=== PATIENT | male | born 1935 | race Two or more races ===

== ENCOUNTER → 2016-09-20 | Outpatient (CLI) | payer MEDICARE, OTHER ==
[~2016-09-20] MED LIST: ATOR10TA PO; ESOM40CA39 PO; READI-CAT 2 (BARIUM SULF)(VANILLA SMOOTHIE) 450ML ONE; SIMV10TA73 PO; TAM04C PO; TRIA37.561 PO
== END | disposition home or self-care (01) ==
LOC: Rad HDHVI 10:18
PROVIDERS: ATTEND Internal Medicine Cardiovascular Disease
DX: K57.30 Diverticulosis of large intestine without perforation or abscess without bleeding (principal); I70.8 Atherosclerosis of other arteries; M47.897 Other spondylosis, lumbosacral region
CPT/HCPCS: 74176

== ENCOUNTER → 2016-11-08 | Outpatient (CLI) | payer MEDICARE, OTHER ==
[~2016-11-08] MED LIST changes: -READI-CAT 2 (BARIUM SULF)(VANILLA SMOOTHIE) 450ML ONE
== END | disposition home or self-care (01) ==
LOC: Rad HDHVI 10:10
PROVIDERS: ATTEND Internal Medicine Cardiovascular Disease
DX: I70.0 Atherosclerosis of aorta (principal); M51.34 Other intervertebral disc degeneration, thoracic region
CPT/HCPCS: 71020

== ENCOUNTER 2016-11-13 20:49 | Inpatient (IN) | payer MEDICARE, OTHER, BC ==
[~2016-11-13] VITALS: Ht 182.9 cm; Wt 82.0 kg
[~2016-11-13 20:49] MED LIST changes: -ASPI81CH59 PO; -BIMA0.01 OP; -FURO40TA PO; -POTA10SO11 PO; -PREG50CA PO
[2016-11-13 21:28] LABS: Basophils # (auto) 0.1 uL; Basophils % (auto) 0.5 % (0.0-2.0); Eosinophils # (auto) 0.4 uL; Eosinophils % (auto) 3.1 % (0.0-7.0); Hematocrit 41.1 % (41.0-53.0); Hemoglobin 13.7 g/dL (13.5-17.5); Mean Corpuscular Hgb Conc. 33.3 g/dL (32.0-36.0); Mean Corpuscular Volume 93.1 fL (80.0-100.0); Mean Platelet Volume 7.4 fL (7.4-10.4); Monocytes # (auto) 1.1 uL; Monocytes % (auto) 9.5 % (0.0-12.0); Neutrophils % (auto) 77.9 % (37.0-80.0); Platelet Count (auto) 371 10^3/uL (140-450); Red Cell Distribution Width 14.1 % (11.6-16.0); White Blood Cell 11.6 10^3/uL (4.4-10.8)
[2016-11-13 21:56] LABS: Albumin 3.1 g/dL (3.4-5.0); Alkaline Phosphatase 101 U/L (45-117); Anion Gap 12 (5-15); Aspartate Aminotransferase 22 U/L (15-37); BUN/Creatinine Ratio 10.9; Bilirubin, Total 0.6 mg/dL (0.2-1.0); Blood Urea Nitrogen 15 mg/dL (7-18); Calcium 8.9 mg/dL (8.5-10.1); Carbon Dioxide 27 mmol/L (21-32); Chloride 101 mmol/L (98-107); GFR African American 64 mL/min; GFR Non-African American 53 mL/min; Glucose 102 mg/dL (74-106); Magnesium 2.3 mg/dL (1.6-2.6); Potassium 3.8 mmol/L (3.5-5.1); Sodium 140 mmol/L (136-145); Total Protein 7.6 g/dL (6.4-8.2)
[2016-11-13 22:20] LABS: INR 1.06 (0.9-1.15); Partial Thromboplastin Time 26.3 sec (22.64-33.71); Prothrombin Time 11.5 sec (9.37-12.3)
[2016-11-13] MEDS ORDERED: SODIUM CHLORIDE 0.9% 1,000 ML IVB ONE (22:53)
[2016-11-14] VITALS (8 sets, daily range): BP systolic 118–131; BP diastolic 59–72
[2016-11-14] MEDS ORDERED: MORPHINE SULF INJ 2 MG/ML SYRINGE 1ML IV PRN
[2016-11-14] MEDS ORDERED: NITROGLYCERIN 0.4 MG SL TAB SL PRN
[2016-11-14] MEDS ORDERED: PREG50CA PO (00:18)
[2016-11-14] MEDS ORDERED: FURO40TA PO (00:18)
[2016-11-14] MEDS ORDERED: BIMA0.01 OP (00:18)
[2016-11-14] MEDS ORDERED: POTA10SO11 PO (00:18)
[2016-11-14] MEDS ORDERED: ASPI81CH59 PO (00:18)
[2016-11-14] MEDS: SODIUM CHLORIDE 0.9% 1,000 ML IV SCH ×2 (00:20→13:25)
[2016-11-14] MEDS ORDERED: ENOXAPARIN SOD 60 MG/0.6 ML SYRINGE SC SCH (01:00)
[2016-11-14] MEDS: ENOXAPARIN SOD 80 MG/0.8ML SYRINGE SC SCH (13:23)
[2016-11-15] MEDS: ENOXAPARIN SOD 80 MG/0.8ML SYRINGE SC SCH ×2 (01:30→13:21)
[2016-11-15] MEDS: SODIUM CHLORIDE 0.9% 1,000 ML IV SCH ×2 (02:40→16:00)
[2016-11-15 05:11] VITALS: BP 122/72
[2016-11-15 09:00] VITALS: BP 130/72
[2016-11-15 13:00] VITALS: BP 145/84
[2016-11-15 16:33] VITALS: BP 143/81
[2016-11-15] MEDS ORDERED: HYDROcodone-ACET 5/325MG TAB PO ONE (18:00)
[2016-11-15 18:34] VITALS: BP 143/81
[2016-11-15 22:00] VITALS: BP 142/79
[2016-11-16] VITALS (7 sets, daily range): BP systolic 134–150; BP diastolic 81–88
[2016-11-16] MEDS: ENOXAPARIN SOD 80 MG/0.8ML SYRINGE SC SCH ×2 (00:42→12:31)
[2016-11-16] MEDS: SODIUM CHLORIDE 0.9% 1,000 ML IV SCH ×2 (07:40→22:00)
[2016-11-16] MEDS ORDERED: IOHEXOL 300 MG/ML 100ML BOTTLE IJ ONE (09:50)
[2016-11-16] MEDS ORDERED: LEVOFLOXACIN 500MG 100 ML IV ONE (12:30)
[2016-11-16] MEDS ORDERED: LORATADINE 10 MG TAB PO ONE (12:30)
[2016-11-16] MEDS: FLUTICASONE PROP NASAL SPR 0.05 % (50MCG) 16GM EACHNOSTRI SCH (22:01)
[2016-11-16] MEDS: HYDROcodone-ACET 10/325MG TAB PO PRN (22:01)
[2016-11-17] VITALS (7 sets, daily range): BP systolic 131–146; BP diastolic 76–88
[2016-11-17] MEDS: ENOXAPARIN SOD 80 MG/0.8ML SYRINGE SC SCH ×2 (01:14→13:05)
[2016-11-17] MEDS: SODIUM CHLORIDE 0.9% 1,000 ML IV SCH ×2 (08:00→21:20)
[2016-11-17] MEDS ORDERED: MAGNESIUM CITRATE SOLUTION 300 ML BTL PO ONE (09:30)
[2016-11-17] MEDS: LORATADINE 10 MG TAB PO SCH (10:12)
[2016-11-17] MEDS: FLUTICASONE PROP NASAL SPR 0.05 % (50MCG) 16GM EACHNOSTRI SCH ×2 (10:12→22:08)
[2016-11-17] MEDS: LEVOFLOXACIN 500MG 100 ML IV SCH (10:12)
[2016-11-17] MEDS: HYDROcodone-ACET 10/325MG TAB PO PRN (22:08)
[2016-11-18] MEDS: ENOXAPARIN SOD 80 MG/0.8ML SYRINGE SC SCH ×2 (00:49→16:50)
[2016-11-18 05:07] VITALS: BP 146/76
[2016-11-18 08:00] VITALS: BP 110/70
[2016-11-18 08:48] VITALS: BP 110/70
[2016-11-18] MEDS: SODIUM CHLORIDE 0.9% 1,000 ML IV SCH (10:40)
[2016-11-18] MEDS: FLUTICASONE PROP NASAL SPR 0.05 % (50MCG) 16GM EACHNOSTRI SCH ×2 (11:12→22:30)
[2016-11-18] MEDS: LEVOFLOXACIN 500MG 100 ML IV SCH (11:12)
[2016-11-18] MEDS: LORATADINE 10 MG TAB PO SCH (11:13)
[2016-11-18 16:48] VITALS: BP 136/76
[2016-11-18] MEDS ORDERED: MAGNESIUM CITRATE SOLUTION 300 ML BTL PO ONE (20:00)
[2016-11-18 20:30] VITALS: BP 140/78
[2016-11-18 22:00] VITALS: BP 140/78
[2016-11-18] MEDS: HYDROcodone-ACET 10/325MG TAB PO PRN (22:30)
[2016-11-19] MEDS: ENOXAPARIN SOD 80 MG/0.8ML SYRINGE SC SCH ×2 (01:47→14:30)
[2016-11-19 05:00] VITALS: BP 127/69
[2016-11-19] MEDS: SODIUM CHLORIDE 0.9% 1,000 ML IV SCH ×2 (05:40→13:20)
[2016-11-19 08:00] VITALS: BP 104/69
[2016-11-19] MEDS: LORATADINE 10 MG TAB PO SCH (10:24)
[2016-11-19] MEDS: FLUTICASONE PROP NASAL SPR 0.05 % (50MCG) 16GM EACHNOSTRI SCH (10:24)
[2016-11-19] MEDS: LEVOFLOXACIN 500MG 100 ML IV SCH (10:24)
[2016-11-19 13:00] VITALS: BP 137/84
[2016-11-19] MEDS ORDERED: LEVO-28 PO ×2 (15:25)
[2016-11-19] MEDS ORDERED: GLUC-7 VI (16:43)
== END 2016-11-19 17:25 | disposition home or self-care (01) | DRG 315 ==
LOC: ER 20:53 → TELE-WESTW 20:54
PROVIDERS: ADMIT Internal Medicine Cardiovascular Disease; ATTEND Internal Medicine Cardiovascular Disease
DX: I95.9 Hypotension, unspecified (principal); E44.1 Mild protein-calorie malnutrition; E86.9 Volume depletion, unspecified; R00.1 Bradycardia, unspecified; K59.00 Constipation, unspecified; J32.9 Chronic sinusitis, unspecified
CPT/HCPCS: 36415; 70450; 70470; 71010; 73030; 80053; 82962; 83735; 84484; 85025; 85610; 85730; 93005; 94761; 96360; 96372; J1956

== ENCOUNTER → 2016-11-13 | Emergency (ER) | payer MEDICARE, OTHER ==
[~2016-11-13] MED LIST changes: +ASPI81CH59 PO; +BIMA0.01 OP; +FURO40TA PO; +POTA10SO11 PO; +PREG50CA PO
== END | disposition left against medical advice (07) ==
LOC: EDBD → ER 20:15

== ENCOUNTER → 2016-11-27 | Outpatient (CLI) | payer MEDICARE, OTHER, BC ==
[~2016-11-27] MED LIST changes: +ASPI81CH59 PO; -ATOR10TA PO; +BIMA0.01 OP; -ESOM40CA39 PO; +FURO40TA PO; +GLUC-7 VI; +LEVO-28 PO; +POTA10SO11 PO; +PREG50CA PO; -TRIA37.561 PO
[2016-11-27 14:15] LABS: Urine RBC None Seen /hpf (0 - 3)
[2016-11-27 16:29] LABS: Urine Bilirubin Negative (Negative); Urine Blood Negative /uL (Negative); Urine Color Yellow (Yellow); Urine Glucose Normal (Normal); Urine Ketone Negative (Negative); Urine Mucus FEW (None Seen); Urine Nitrite Negative (Negative); Urine Urobilinogen Normal (Negative); Urine pH 5.5 (5.0-8.0)
== END | disposition home or self-care (01) ==
LOC: LAB 11:08
PROVIDERS: ATTEND Internal Medicine Cardiovascular Disease
DX: N39.0 Urinary tract infection, site not specified (principal); R80.9 Proteinuria, unspecified
CPT/HCPCS: 81001; 84156

== ENCOUNTER → 2016-12-17 | Outpatient (CLI) | payer MEDICARE, OTHER, BC | END | disposition home or self-care (01) | LOC: Rad HDHVI 09:54 | PROVIDERS: ATTEND Internal Medicine Cardiovascular Disease | DX: R07.9 Chest pain, unspecified (principal); E11.40 Type 2 diabetes mellitus with diabetic neuropathy, unspecified | CPT/HCPCS: 93306 ==

== ENCOUNTER → 2017-01-03 | Outpatient (CLI) | payer MEDICARE, OTHER, BC ==
[~2017-01-03] VITALS: Ht 182.9 cm; Wt 81.6 kg
[~2017-01-03] MED LIST changes: +ADENOSINE 69 MG in GIVE UN-DILUTED 0 ML IV ONE; +ADENOSINE 90 MG/30 ML INJ IV ONE
== END | disposition home or self-care (01) ==
LOC: Rad HDHVI 09:51
PROVIDERS: ATTEND Internal Medicine Cardiovascular Disease
DX: I25.10 Atherosclerotic heart disease of native coronary artery without angina pectoris (principal); I10 Essential (primary) hypertension; E11.9 Type 2 diabetes mellitus without complications; R53.1 Weakness; E78.5 Hyperlipidemia, unspecified
CPT/HCPCS: 78452; 93005; 96374; 96375; A9500; J0153

== ENCOUNTER → 2017-03-04 | Outpatient (CLI) | payer MEDICARE, OTHER ==
[~2017-03-04] MED LIST changes: -ADENOSINE 69 MG in GIVE UN-DILUTED 0 ML IV ONE; -ADENOSINE 90 MG/30 ML INJ IV ONE
[2017-03-04 12:48] LABS: Basophils # (auto) 0 uL; Basophils % (auto) 0.3 % (0.0-2.0); CONDITION Y; Eosinophils # (auto) 0.1 uL; Eosinophils % (auto) 0.9 % (0.0-7.0); Hemoglobin 15.9 g/dL (13.5-17.5); Lymphocytes # (auto) 0.7 uL; Lymphocytes % (auto) 8.5 % (10.0-50.0); Mean Corpuscular Hemoglobin 30.1 pg (28.0-32.0); Mean Corpuscular Hgb Conc. 33.8 g/dL (32.0-36.0); Mean Corpuscular Volume 88.9 fL (80.0-100.0); Mean Platelet Volume 9.4 fL (7.4-10.4); Monocytes # (auto) 0.5 uL; Monocytes % (auto) 6.4 % (0.0-12.0); Neutrophils # (auto) 6.7 uL; Neutrophils % (auto) 83.9 % (37.0-80.0); Platelet Count (auto) 177 10^3/uL (140-450); Red Cell Distribution Width 14.8 % (11.6-16.0)
[2017-03-04 12:53] LABS: Urine Bilirubin Negative (Negative); Urine Blood Negative /uL (Negative); Urine Color Yellow (Yellow); Urine Glucose Normal (Normal); Urine Ketone TRACE (Negative); Urine Nitrite Negative (Negative); Urine pH 6.5 (5.0-8.0)
[2017-03-04 13:35] LABS: Potassium 4.2 mmol/L (3.5-5.1)
[2017-03-04 13:43] LABS: Albumin 3.3 g/dL (3.4-5.0); BUN/Creatinine Ratio 25.2; Calcium 8.9 mg/dL (8.5-10.1)
[2017-03-04 13:48] LABS: Bilirubin, Direct 0.2 mg/dL (0-0.2); Bilirubin, Total 0.9 mg/dL (0.2-1.0)
== END | disposition home or self-care (01) ==
LOC: LAB 10:38
PROVIDERS: ATTEND Internal Medicine Cardiovascular Disease
DX: I10 Essential (primary) hypertension (principal); D64.9 Anemia, unspecified; E78.00 Pure hypercholesterolemia, unspecified; E03.9 Hypothyroidism, unspecified; E55.9 Vitamin D deficiency, unspecified; R53.81 Other malaise; R97.20 Elevated prostate specific antigen [PSA]; K74.1 Hepatic sclerosis; E11.9 Type 2 diabetes mellitus without complications; N39.0 Urinary tract infection, site not specified
CPT/HCPCS: 36415; 80048; 80061; 80076; 81003; 82306; 83036; 84153; 84403; 84443; 85025

== ENCOUNTER → 2017-05-21 | Outpatient (CLI) | payer MEDICARE, OTHER ==
[~2017-05-21] MED LIST changes: +IOHEXOL 350 MG/ML 100ML IJ ONE
[2017-05-21 11:35] VITALS: BP 129/60
[2017-05-21 12:25] VITALS: BP 137/65
== END | disposition home or self-care (01) ==
LOC: Rad HDHVI 11:26
PROVIDERS: ATTEND Internal Medicine Cardiovascular Disease
DX: K57.30 Diverticulosis of large intestine without perforation or abscess without bleeding (principal); I70.0 Atherosclerosis of aorta; M47.896 Other spondylosis, lumbar region
CPT/HCPCS: 74178; 82565; 96374; Q9967; G0463

== ENCOUNTER → 2017-09-18 | Outpatient (CLI) | payer MEDICARE, OTHER ==
[~2017-09-18] MED LIST changes: +BIMA0.01 EACHEYE; +CLOT1CRE13 TOP; +DICL1GEL26 TD; -IOHEXOL 350 MG/ML 100ML IJ ONE; +LIDO5CRE14 EXT; +MELO1TAB56 PO; +POLYSOL5 EACHEYE; +TEST1.62 TD; +TIMO0.5S32 OP; +TRAM50TA2 PO
[2017-09-18 12:33] LABS: Basophils # (auto) 0.1 uL; Basophils % (auto) 1.1 % (0.0-2.0); Eosinophils # (auto) 0.5 uL; Hematocrit 46.4 % (41.0-53.0); Hemoglobin 15.4 g/dL (13.5-17.5); Lymphocytes # (auto) 0.7 uL; Lymphocytes % (auto) 11.8 % (10.0-50.0); Mean Corpuscular Hemoglobin 30.3 pg (28.0-32.0); Mean Corpuscular Hgb Conc. 33.3 g/dL (32.0-36.0); Mean Corpuscular Volume 91.1 fL (80.0-100.0); Monocytes # (auto) 0.5 uL; Monocytes % (auto) 8.5 % (0.0-12.0); Neutrophils # (auto) 4.5 uL; Neutrophils % (auto) 70.6 % (37.0-80.0); Nucleated Red Blood Cells % 0.3 %; Platelet Count (auto) 168 10^3/uL (140-450); Red Blood Cells 5.09 10^6/uL (4.5-5.90); Red Cell Distribution Width 14.2 % (11.8-14.3); White Blood Cell 6.3 10^3/uL (4.4-10.8)
[2017-09-18 12:45] LABS: Urine Blood TRACE /uL (Negative); Urine Specific Gravity 1.015 (1.001-1.035)
[2017-09-18 13:34] LABS: Albumin 3.2 g/dL (3.4-5.0); BUN/Creatinine Ratio 14.3; Bilirubin, Direct 0.2 mg/dL (0-0.2); Bilirubin, Total 0.6 mg/dL (0.2-1.0); Calcium 8.9 mg/dL (8.5-10.1); Potassium 4.1 mmol/L (3.5-5.1); Total Protein 7.4 g/dL (6.4-8.2)
[2017-09-18 19:46] LABS: Prostate Specific Antigen 0.9 ng/mL (0.0-4.0)
== END | disposition home or self-care (01) ==
LOC: LAB 08:29
PROVIDERS: ATTEND Internal Medicine Cardiovascular Disease
DX: E78.00 Pure hypercholesterolemia, unspecified (principal); D64.9 Anemia, unspecified; E11.9 Type 2 diabetes mellitus without complications; E03.9 Hypothyroidism, unspecified; E55.9 Vitamin D deficiency, unspecified; K74.1 Hepatic sclerosis; D51.9 Vitamin B12 deficiency anemia, unspecified; N39.0 Urinary tract infection, site not specified; R53.81 Other malaise; R97.20 Elevated prostate specific antigen [PSA]; I10 Essential (primary) hypertension
CPT/HCPCS: 36415; 80048; 80061; 80076; 81003; 82306; 82607; 83036; 84153; 84403; 84439; 84443; 85025

== ENCOUNTER → 2017-10-17 | Outpatient (CLI) | payer MEDICARE, OTHER ==
[2017-10-17 11:25] VITALS: BP 134/65
[2017-10-17 11:55] VITALS: BP 150/70
[2017-10-17 15:56] LABS: Basophils # (auto) 0.1 uL; Basophils % (auto) 0.8 % (0.0-2.0); Eosinophils # (auto) 0.7 uL; Eosinophils % (auto) 9.6 % (0.0-7.0); Hemoglobin 14.4 g/dL (13.5-17.5); Lymphocytes # (auto) 0.8 uL; Lymphocytes % (auto) 10.7 % (10.0-50.0); Mean Corpuscular Hemoglobin 31.6 pg (28.0-32.0); Mean Corpuscular Hgb Conc. 34.3 g/dL (32.0-36.0); Mean Corpuscular Volume 92.1 fL (80.0-100.0); Monocytes # (auto) 0.6 uL; Monocytes % (auto) 7.8 % (0.0-12.0); Neutrophils # (auto) 5.5 uL; Neutrophils % (auto) 71.1 % (37.0-80.0); Nucleated Red Blood Cells % 0.1 %; Platelet Count (auto) 161 10^3/uL (140-450); Red Blood Cells 4.56 10^6/uL (4.5-5.90); Red Cell Distribution Width 14.8 % (11.8-14.3); White Blood Cell 7.7 10^3/uL (4.4-10.8)
[2017-10-17 16:04] LABS: BUN/Creatinine Ratio 16.7; Calcium 8.2 mg/dL (8.5-10.1)
[2017-10-17 16:23] LABS: INR 1.04 (0.9-1.15); Partial Thromboplastin Time 28.5 sec (22.64-33.71); Prothrombin Time 11.3 sec (9.37-12.3)
== END | disposition home or self-care (01) ==
LOC: CHF HDHVI 11:11
PROVIDERS: ATTEND Internal Medicine Cardiovascular Disease
DX: Z01.818 Encounter for other preprocedural examination (principal); E78.00 Pure hypercholesterolemia, unspecified; E55.9 Vitamin D deficiency, unspecified; I70.0 Atherosclerosis of aorta; D64.9 Anemia, unspecified; R79.1 Abnormal coagulation profile; I10 Essential (primary) hypertension
CPT/HCPCS: 36415; 71046; 80048; 85025; 85610; 85730; 93005; G0463

== ENCOUNTER → 2017-11-21 | Outpatient (CLI) | payer MEDICARE, OTHER ==
[~2017-11-21] MED LIST changes: -BIMA0.01 OP; -FURO40TA PO; -GLUC-7 VI; -LEVO-28 PO; -POTA10SO11 PO; -SIMV10TA73 PO
[2017-11-21 09:00] VITALS: BP 136/88
[2017-11-21 11:57] VITALS: BP 132/82
== END | disposition home or self-care (01) ==
LOC: Rad HDHVI 09:13
PROVIDERS: ATTEND Internal Medicine Cardiovascular Disease
DX: I70.0 Atherosclerosis of aorta (principal); I25.10 Atherosclerotic heart disease of native coronary artery without angina pectoris; E11.9 Type 2 diabetes mellitus without complications; I10 Essential (primary) hypertension; E78.00 Pure hypercholesterolemia, unspecified
CPT/HCPCS: 71046; 93005; G0463

== ENCOUNTER → 2018-05-25 | Outpatient (CLI) | payer MEDICARE, OTHER | END | disposition home or self-care (01) | LOC: LAB 09:53 | PROVIDERS: ATTEND Internal Medicine Cardiovascular Disease | DX: C61 Malignant neoplasm of prostate (principal); E11.9 Type 2 diabetes mellitus without complications | CPT/HCPCS: 36415; 83036; 84153 ==

== ENCOUNTER → 2018-06-23 | Outpatient (CLI) | payer MEDICARE, BC, OTHER ==
[2018-06-23 11:56] LABS: Urine Blood TRACE /uL (Negative); Urine Specific Gravity 1.015 (1.001-1.035)
[2018-06-23 12:04] LABS: Basophils # (auto) 0.1 uL; Basophils % (auto) 0.8 % (0.0-2.0); Eosinophils # (auto) 0.4 uL; Eosinophils % (auto) 5.8 % (0.0-7.0); Hematocrit 43.8 % (41.0-53.0); Hemoglobin 14.4 g/dL (13.5-17.5); Lymphocytes # (auto) 0.7 uL; Lymphocytes % (auto) 11.1 % (10.0-50.0); Mean Corpuscular Hemoglobin 30.4 pg (28.0-32.0); Mean Corpuscular Hgb Conc. 32.9 g/dL (32.0-36.0); Mean Corpuscular Volume 92.5 fL (80.0-100.0); Monocytes # (auto) 0.6 uL; Monocytes % (auto) 9.3 % (0.0-12.0); Neutrophils # (auto) 4.9 uL; Nucleated Red Blood Cells % 0.2 %; Platelet Count (auto) 176 10^3/uL (140-450); Red Blood Cells 4.74 10^6/uL (4.5-5.90); Red Cell Distribution Width 14.6 % (11.8-14.3); White Blood Cell 6.7 10^3/uL (4.4-10.8)
[2018-06-23 13:13] LABS: Albumin 3.2 g/dL (3.4-5.0); BUN/Creatinine Ratio 19.3; Bilirubin, Total 0.8 mg/dL (0.2-1.0); Calcium 8.5 mg/dL (8.5-10.1); Total Protein 7.2 g/dL (6.4-8.2)
[2018-06-23 13:34] LABS: Free T4 (Free Thyroxine) 0.93 ng/dL (0.89-1.76); Prostate Specific Antigen 0.56 ng/mL (0.0-4.0)
== END | disposition home or self-care (01) ==
LOC: LAB 09:19
PROVIDERS: ATTEND Internal Medicine Cardiovascular Disease
DX: E78.5 Hyperlipidemia, unspecified (principal); E11.9 Type 2 diabetes mellitus without complications; E03.9 Hypothyroidism, unspecified; E55.9 Vitamin D deficiency, unspecified; D51.9 Vitamin B12 deficiency anemia, unspecified; C61 Malignant neoplasm of prostate; D64.9 Anemia, unspecified; N39.0 Urinary tract infection, site not specified; I10 Essential (primary) hypertension
CPT/HCPCS: 36415; 80053; 80061; 81003; 82306; 82607; 83036; 84153; 84403; 84439; 84443; 85025

== ENCOUNTER → 2018-10-06 | Outpatient (CLI) | payer MEDICARE, BC, OTHER | END | disposition home or self-care (01) | LOC: Rad HDHVI 13:04 | PROVIDERS: ATTEND Internal Medicine Cardiovascular Disease | DX: I08.1 Rheumatic disorders of both mitral and tricuspid valves (principal); G45.9 Transient cerebral ischemic attack, unspecified; I48.0 Paroxysmal atrial fibrillation; I49.5 Sick sinus syndrome; R00.2 Palpitations | CPT/HCPCS: 93306 ==

== ENCOUNTER → 2018-10-27 | Outpatient (CLI) | payer MEDICARE, BC, OTHER ==
[~2018-10-27] MED LIST changes: +ADENOSINE 70 MG in GIVE UN-DILUTED 0 ML IV ONE; +ADENOSINE 90 MG/30 ML INJ IV ONE
== END | disposition home or self-care (01) ==
LOC: Rad HDHVI 13:17
PROVIDERS: ATTEND Internal Medicine Cardiovascular Disease
DX: Z01.810 Encounter for preprocedural cardiovascular examination (principal); I49.5 Sick sinus syndrome; G45.9 Transient cerebral ischemic attack, unspecified; I48.0 Paroxysmal atrial fibrillation; E11.9 Type 2 diabetes mellitus without complications
CPT/HCPCS: 78452; 93005; 96374; 96375; A9500; J0153

== ENCOUNTER → 2019-04-09 | Outpatient (CLI) | payer MEDICARE, BC, OTHER ==
[~2019-04-09] MED LIST changes: -ADENOSINE 70 MG in GIVE UN-DILUTED 0 ML IV ONE; -ADENOSINE 90 MG/30 ML INJ IV ONE; +POLYSOL2 EACHEYE; -POLYSOL5 EACHEYE
[2019-04-09 12:09] LABS: Urine Blood TRACE /uL (Negative); Urine Specific Gravity 1.015 (1.001-1.035)
[2019-04-09 12:15] LABS: Basophils # (auto) 0.1 uL; Basophils % (auto) 0.9 % (0.0-2.0); Eosinophils # (auto) 0.6 uL; Eosinophils % (auto) 8.5 % (0.0-7.0); Hematocrit 44.7 % (41.0-53.0); Hemoglobin 15.3 g/dL (13.5-17.5); Lymphocytes # (auto) 0.7 uL; Lymphocytes % (auto) 10.5 % (10.0-50.0); Mean Corpuscular Hemoglobin 31.8 pg (28.0-32.0); Mean Corpuscular Hgb Conc. 34.2 g/dL (32.0-36.0); Mean Corpuscular Volume 93.1 fL (80.0-100.0); Monocytes # (auto) 0.6 uL; Monocytes % (auto) 7.8 % (0.0-12.0); Neutrophils # (auto) 5.1 uL; Neutrophils % (auto) 72.3 % (37.0-80.0); Nucleated Red Blood Cells % 0.2 %; Platelet Count (auto) 154 10^3/uL (140-450); Red Cell Distribution Width 14.6 % (11.8-14.3); White Blood Cell 7.1 10^3/uL (4.4-10.8)
[2019-04-09 12:28] LABS: Free T4 (Free Thyroxine) 0.94 ng/dL (0.89-1.76); Prostate Specific Antigen 0.56 ng/mL (0.0-4.0)
[2019-04-09 13:18] LABS: Albumin 3.4 g/dL (3.4-5.0)
[2019-04-09 13:24] LABS: BUN/Creatinine Ratio 16.1; Bilirubin, Total 1.1 mg/dL (0.2-1.0); Total Protein 7.5 g/dL (6.4-8.2)
== END | disposition home or self-care (01) ==
LOC: LAB 07:51
PROVIDERS: ATTEND Internal Medicine Cardiovascular Disease
DX: E03.9 Hypothyroidism, unspecified (principal); K90.9 Intestinal malabsorption, unspecified; C61 Malignant neoplasm of prostate; E29.1 Testicular hypofunction; N39.0 Urinary tract infection, site not specified; D51.9 Vitamin B12 deficiency anemia, unspecified; E11.9 Type 2 diabetes mellitus without complications; Z79.899 Other long term (current) drug therapy
CPT/HCPCS: 36415; 80053; 80061; 81003; 82306; 82607; 83036; 84153; 84403; 84439; 84443; 85025

== ENCOUNTER → 2019-05-11 | Outpatient (CLI) | payer MEDICARE, BC, OTHER | END | disposition home or self-care (01) | LOC: Rad HDHVI 08:23 | PROVIDERS: ATTEND Internal Medicine Cardiovascular Disease | DX: M19.072 Primary osteoarthritis, left ankle and foot (principal); M85.872 Other specified disorders of bone density and structure, left ankle and foot; M77.32 Calcaneal spur, left foot | CPT/HCPCS: 73630 ==

== ENCOUNTER → 2019-11-02 | Outpatient (CLI) | payer MEDICARE, OTHER ==
[~2019-11-02] VITALS: Ht 182.9 cm; Wt 83.5 kg
[~2019-11-02] MED LIST changes: +ADENOSINE 70 MG in GIVE UN-DILUTED 0 ML IV ONE; +ADENOSINE 90 MG/30 ML INJ IV ONE
[2019-11-02 15:47] LABS: Basophils # (auto) 0 10 ^3/uL (0-0.2); Basophils % (auto) 0.4 % (0.0-2.0); Eosinophils # (auto) 0.3 10 ^3/uL (0-0.8); Eosinophils % (auto) 4.6 % (0.0-7.0); Hematocrit 43.4 % (41.0-53.0); Hemoglobin 14.9 g/dL (13.5-17.5); Lymphocytes # (auto) 0.8 10 ^3/uL (0.4-5.4); Lymphocytes % (auto) 10.6 % (10.0-50.0); Mean Corpuscular Hemoglobin 31.8 pg (28.0-32.0); Mean Corpuscular Hgb Conc. 34.4 g/dL (32.0-36.0); Mean Corpuscular Volume 92.3 fL (80.0-100.0); Monocytes # (auto) 0.7 10 ^3/uL (0-1.3); Monocytes % (auto) 9.6 % (0.0-12.0); Neutrophils # (auto) 5.3 10 ^3/uL (1.6-8.6); Neutrophils % (auto) 74.8 % (37.0-80.0); Platelet Count (auto) 175 10^3/uL (140-450); Red Cell Distribution Width 13.9 % (11.8-14.3); White Blood Cell 7.1 10^3/uL (4.4-10.8)
[2019-11-02 15:57] LABS: Urine Blood Negative /uL (Negative); Urine Specific Gravity 1.015 (1.001-1.035)
[2019-11-02 15:59] LABS: Albumin 3.5 g/dL (3.4-5.0); BUN/Creatinine Ratio 17.3; Calcium 8.8 mg/dL (8.5-10.1); Potassium 4.6 mmol/L (3.5-5.1)
[2019-11-02 16:03] LABS: Bilirubin, Total 0.9 mg/dL (0.2-1.0); Total Protein 7.9 g/dL (6.4-8.2)
[2019-11-02 16:10] LABS: Free T4 (Free Thyroxine) 1.05 ng/dL (0.89-1.76)
== END | disposition home or self-care (01) ==
LOC: Rad HDHVI 12:48
PROVIDERS: ATTEND Internal Medicine Cardiovascular Disease
DX: Z00.00 Encounter for general adult medical examination without abnormal findings (principal); E03.9 Hypothyroidism, unspecified; K90.9 Intestinal malabsorption, unspecified; C61 Malignant neoplasm of prostate; E29.1 Testicular hypofunction; N39.0 Urinary tract infection, site not specified; D51.9 Vitamin B12 deficiency anemia, unspecified; Z79.899 Other long term (current) drug therapy
CPT/HCPCS: 36415; 78452; 80053; 80061; 81003; 82306; 82607; 83036; 84403; 84439; 84443; 85025; 93005; 96374; 96375; A9500; J0153

== ENCOUNTER → 2019-11-09 | Outpatient (CLI) | payer MEDICARE, OTHER ==
[~2019-11-09] MED LIST changes: -ADENOSINE 70 MG in GIVE UN-DILUTED 0 ML IV ONE; -ADENOSINE 90 MG/30 ML INJ IV ONE
== END | disposition home or self-care (01) ==
LOC: Rad HDHVI 12:49
PROVIDERS: ATTEND Internal Medicine Cardiovascular Disease
DX: I25.10 Atherosclerotic heart disease of native coronary artery without angina pectoris (principal); I11.0 Hypertensive heart disease with heart failure; I50.23 Acute on chronic systolic (congestive) heart failure
CPT/HCPCS: 93306

== ENCOUNTER → 2019-12-07 | Outpatient (CLI) | payer MEDICARE, OTHER ==
[~2019-12-07] MED LIST changes: +POM PO; +SIMV-8 PO
[2019-12-07 09:10] VITALS: BP 123/68
--- NOTE | 2019-12-07 09:10 | NUR ---
CHF PT ARRIVED TO THE CHF CLINIC FOR PRE OP EKG LABS AND CXR FOR LHC ON 12/09/19. A/OX4, AMBULATORY. VSS.
[2019-12-07 09:35] VITALS: BP 124/74
--- NOTE | 2019-12-07 09:35 | NUR ---
Pre-Op Discharge Summary: See e-MAR for any medications given for this visit. Pre-op orders received and carried out per MD of EKG, LABS and chest xrays. Patient given a copy of EKG with instructions to go to [facility] out patient for further follow up care. INSTRUCTIONS GIVEN TO PT TO HAVE CXR DONE AT HOSPITAL ALONG WITH COVID TESTING AND INTERVIEW. PT VERBALIZED UNDERSTANDING NOTE EKG DONE BY ANGI DELGADILLO
[2019-12-07 11:51] LABS: Basophils # (auto) 0.1 10 ^3/uL (0-0.2); Basophils % (auto) 0.8 % (0.0-2.0); Eosinophils # (auto) 0.8 10 ^3/uL (0-0.8); Eosinophils % (auto) 9.6 % (0.0-7.0); Hematocrit 43.6 % (41.0-53.0); Hemoglobin 14.7 g/dL (13.5-17.5); Lymphocytes # (auto) 0.8 10 ^3/uL (0.4-5.4); Lymphocytes % (auto) 10.1 % (10.0-50.0); Mean Corpuscular Hemoglobin 31.3 pg (28.0-32.0); Mean Corpuscular Hgb Conc. 33.6 g/dL (32.0-36.0); Mean Corpuscular Volume 93.2 fL (80.0-100.0); Monocytes # (auto) 0.6 10 ^3/uL (0-1.3); Monocytes % (auto) 8.1 % (0.0-12.0); Neutrophils # (auto) 5.6 10 ^3/uL (1.6-8.6); Neutrophils % (auto) 71.4 % (37.0-80.0); Platelet Count (auto) 179 10^3/uL (140-450); Red Blood Cells 4.67 10^6/uL (4.5-5.90); Red Cell Distribution Width 14.3 % (11.8-14.3); White Blood Cell 7.9 10^3/uL (4.4-10.8)
[2019-12-07 12:05] LABS: BUN/Creatinine Ratio 19.7; Calcium 8.7 mg/dL (8.5-10.1); Potassium 4.1 mmol/L (3.5-5.1)
[2019-12-07 12:06] LABS: INR 1.07 (0.9-1.15); Partial Thromboplastin Time 28.6 sec (23.64-32.05)
== END | disposition home or self-care (01) ==
LOC: Rad HDHVI 08:57
PROVIDERS: ATTEND Internal Medicine Cardiovascular Disease
DX: Z01.812 Encounter for preprocedural laboratory examination (principal); I50.9 Heart failure, unspecified; I25.10 Atherosclerotic heart disease of native coronary artery without angina pectoris; I49.5 Sick sinus syndrome; R94.39 Abnormal result of other cardiovascular function study
CPT/HCPCS: 36415; 80048; 82962; 85025; 85610; 85730; 93005; G0463

== ENCOUNTER 2019-12-09 09:30 | Day surgery (SDC) | payer MEDICARE, OTHER ==
[~2019-12-09] VITALS: Ht 182.9 cm; Wt 78.5 kg
[~2019-12-09 09:30] MED LIST changes: -TAM04C PO
[2019-12-09] MEDS ORDERED: IOHEXOL 350 MG/ML 100ML IJ ONE (11:28)
[2019-12-09] MEDS ORDERED: LIDOCAINE 2%HCL (LOCAL ANESTH.) INJ 20ML MDV ONE (11:28)
[2019-12-09] MEDS ORDERED: MIDAZOLAM HCL 1MG/1ML-2 ML VIAL ONE (11:36)
[2019-12-09] MEDS ORDERED: ANGIOMAX 250 MG VIAL IV ONE (11:36)
[2019-12-09] MEDS ORDERED: fentaNYL CITRATE 100 MCG/2 ML VL ONE (11:36)
[2019-12-09] MEDS ORDERED: SODIUM CHL 0.9% 0 ML ONE (11:37)
[2019-12-09] MEDS ORDERED: ACETAMINOPHEN 500 MG TAB PO PRN (12:30)
[2019-12-09] MEDS ORDERED: HYDROcodone-ACET 5/325MG TAB PO PRN (12:30)
[2019-12-09] MEDS ORDERED: ONDANSETRON HCL 4 MG/2 ML VIAL IV PRN (12:30)
== END 2019-12-09 15:01 | disposition home or self-care (01) ==
LOC: CATH 09:30
PROVIDERS: ATTEND Internal Medicine Cardiovascular Disease
DX: R94.39 Abnormal result of other cardiovascular function study (principal); I25.810 Atherosclerosis of coronary artery bypass graft(s) without angina pectoris; I10 Essential (primary) hypertension; E78.5 Hyperlipidemia, unspecified; J44.9 Chronic obstructive pulmonary disease, unspecified; Z88.0 Allergy status to penicillin; Z88.1 Allergy status to other antibiotic agents; Z98.890 Other specified postprocedural states; Z11.59 Encounter for screening for other viral diseases
CPT/HCPCS: 93458; C1760; C1894; J1644; J2250; J3010; J7030; Q9967; U0003; 99152

== ENCOUNTER → 2020-05-01 | Outpatient (CLI) | payer MEDICARE, OTHER ==
[~2020-05-01] VITALS: Ht 30.5 cm; Wt 0.5 kg
[~2020-05-01] MED LIST changes: +AZITHROMYCIN 500MG/ 250ML 250 ML IV ONE; +IOHEXOL 350 MG/ML 100ML IJ ONE; +methylPREDNISolone SOD SUCC 40 MG/ML VL IV ONE; +methylPREDNISolone SOD SUCC 40 MG/ML VL ONE
[2020-05-01 10:40] VITALS: BP 138/68
[2020-05-01 11:50] LABS: Basophils # (auto) 0 10 ^3/uL (0-0.2); Basophils % (auto) 0.4 % (0.0-2.0); Eosinophils # (auto) 0.3 10 ^3/uL (0-0.8); Eosinophils % (auto) 2.8 % (0.0-7.0); Hematocrit 42.4 % (41.0-53.0); Hemoglobin 13.9 g/dL (13.5-17.5); Lymphocytes # (auto) 0.4 10 ^3/uL (0.4-5.4); Lymphocytes % (auto) 3.9 % (10.0-50.0); Mean Corpuscular Hemoglobin 29.5 pg (28.0-32.0); Mean Corpuscular Hgb Conc. 32.8 g/dL (32.0-36.0); Mean Corpuscular Volume 89.9 fL (80.0-100.0); Monocytes # (auto) 0.7 10 ^3/uL (0-1.3); Neutrophils # (auto) 9.8 10 ^3/uL (1.6-8.6); Neutrophils % (auto) 86.9 % (37.0-80.0); Platelet Count (auto) 301 10^3/uL (140-450); Red Blood Cells 4.71 10^6/uL (4.5-5.90); Red Cell Distribution Width 14.6 % (11.8-14.3); White Blood Cell 11.2 10^3/uL (4.4-10.8)
[2020-05-01 12:00] LABS: BUN/Creatinine Ratio 20.2; Magnesium 2.2 mg/dL (1.6-2.6); Potassium 3.4 mmol/L (3.5-5.1)
[2020-05-01 13:38] VITALS: BP 138/63
== END | disposition home or self-care (01) ==
LOC: CHF HDHVI 10:38
PROVIDERS: ATTEND Internal Medicine Cardiovascular Disease
DX: J06.9 Acute upper respiratory infection, unspecified (principal); D64.9 Anemia, unspecified; I11.0 Hypertensive heart disease with heart failure; I50.23 Acute on chronic systolic (congestive) heart failure; R05 Cough
CPT/HCPCS: 36415; 71260; 80048; 83735; 83880; 85025; 96365; 96366; 96375; G0463; J0456; J2920; Q9967

== ENCOUNTER → 2020-05-12 | Outpatient (CLI) | payer MEDICARE, OTHER ==
[~2020-05-12] VITALS: Ht 30.5 cm; Wt 63.0 kg
[~2020-05-12] MED LIST changes: -AZITHROMYCIN 500MG/ 250ML 250 ML IV ONE; +CHOL500021 OR; +DORZ2SOL18 EACHEYE; +FINA5TAB4 PO; +LATA0.0020 EACHEYE; +PSYL28PO3; +SODIUM CHLORIDE 0.9% 500 ML IV ONE; -methylPREDNISolone SOD SUCC 40 MG/ML VL IV ONE; -methylPREDNISolone SOD SUCC 40 MG/ML VL ONE
[2020-05-12 09:53] VITALS: BP 104/55
--- NOTE | 2020-05-12 09:53 | NUR ---
CLINIC PT ARRIVED TO THE CLINIC FROM BACK OFFICE ADD ON CT CHEST WITH IV CONTRAST, A/OX4, AMBULATORY, BREATHING IS EVEN AND UNLABORED. PT IS A DIABETIC.
--- NOTE | 2020-05-12 09:59 | NUR ---
IV insertion IV access obtained, via clean sterile technique by inserting 22 gauge catheter at LAC after 1 attempt(s). IV secured properly. No trauma to site. Patient tolerated procedure well. LABS DRAWN AND SENT STAT. NOTE INSERTED BY ZANDRA GUNTER
--- NOTE | 2020-05-12 10:50 | NUR ---
CRAET RESULTS 1.48, MD AWARE NEW ORDERS RECEIVED FOR IV HYDRATION POST CT WITH CONTRAST. SEE EMAR
[2020-05-12 11:20] VITALS: BP 128/66
--- NOTE | 2020-05-12 13:12 | NUR ---
IV removal IV DC'd with sterile technique, catheter fully intact. Pressure dressing applied to site. Patient tolerated procedure well. Discharged with aftercare instructions per MD. NOTE: REMOVED BY ZANDRA GUNTER
[2020-05-12 13:16] VITALS: BP 143/73
--- NOTE | 2020-05-12 13:16 | NUR ---
Discharge Instructions See e-MAR for any mediations given with this visit. Patient education given on disease process. Patient verbalized understanding. Previous labs reviewed. Patient discharged in stable condition with after care instructions and follow up appointment WITH MD SIMON ON FRIDAY. [place] [id number] ADMIN BY ZANDRA GUNTER
== END | disposition home or self-care (01) ==
LOC: Rad HDHVI 09:41
PROVIDERS: ATTEND Internal Medicine Cardiovascular Disease
DX: R91.8 Other nonspecific abnormal finding of lung field (principal); R94.4 Abnormal results of kidney function studies; I11.0 Hypertensive heart disease with heart failure; I50.22 Chronic systolic (congestive) heart failure; I25.10 Atherosclerotic heart disease of native coronary artery without angina pectoris; I42.8 Other cardiomyopathies; J44.9 Chronic obstructive pulmonary disease, unspecified
CPT/HCPCS: 36415; 71260; 82565; 96360; 96361; G0463; J7040; Q9967

== ENCOUNTER 2020-05-17 09:38 | Inpatient (IN) | payer MEDICARE, OTHER ==
[~2020-05-17] VITALS: Ht 182.9 cm; Wt 78.2 kg
[~2020-05-17 09:38] MED LIST changes: -CHOL500021 OR; -DORZ2SOL18 EACHEYE; -FINA5TAB4 PO; -IOHEXOL 350 MG/ML 100ML IJ ONE; -LATA0.0020 EACHEYE; -PSYL28PO3; -SODIUM CHLORIDE 0.9% 500 ML IV ONE
--- NOTE | 2020-05-17 11:52 | NUR ---
Direct Admit Note MARLYN ALEXANDRA JR admitted to Telemetry/MS unit as a direct admit per MD order. Patient oriented to JAIME GOODMAN primary RN, unit, room 289B and unit policies regarding patient care and visiting hours. Patient weighed by bed scale and encouraged to call if they need something. All questions and concerns addressed, patient verbalized understanding. MD notified of patients arrival and admit orders received.
[2020-05-17 12:00] VITALS: BP 114/62
[2020-05-17] MEDS ORDERED: traMADol HCL 50 MG TAB PO PRN (12:00)
[2020-05-17] MEDS ORDERED: PREGABALIN 25 MG CAP PO ONE (12:45)
[2020-05-17] MEDS ORDERED: DORZ2SOL18 EACHEYE (12:55)
[2020-05-17] MEDS ORDERED: FINA5TAB4 PO (12:55)
[2020-05-17] MEDS ORDERED: PSYL28PO3 (12:55)
[2020-05-17] MEDS ORDERED: CHOL500021 OR (12:55)
[2020-05-17] MEDS ORDERED: LATA0.0020 EACHEYE (12:55)
[2020-05-17 13:13] LABS: Basophils # (auto) 0.1 10 ^3/uL (0-0.2); Basophils % (auto) 0.7 % (0.0-2.0); Eosinophils # (auto) 0.2 10 ^3/uL (0-0.8); Eosinophils % (auto) 1.5 % (0.0-7.0); Hematocrit 34.7 % (41.0-53.0); Hemoglobin 11.7 g/dL (13.5-17.5); Lymphocytes # (auto) 0.6 10 ^3/uL (0.4-5.4); Lymphocytes % (auto) 4.4 % (10.0-50.0); Mean Corpuscular Hemoglobin 30.3 pg (28.0-32.0); Mean Corpuscular Hgb Conc. 33.7 g/dL (32.0-36.0); Mean Corpuscular Volume 89.9 fL (80.0-100.0); Monocytes # (auto) 1.1 10 ^3/uL (0-1.3); Monocytes % (auto) 8.5 % (0.0-12.0); Neutrophils # (auto) 10.8 10 ^3/uL (1.6-8.6); Neutrophils % (auto) 84.9 % (37.0-80.0); Platelet Count (auto) 219 10^3/uL (140-450); Red Blood Cells 3.86 10^6/uL (4.5-5.90); Red Cell Distribution Width 15.5 % (11.8-14.3); White Blood Cell 12.7 10^3/uL (4.4-10.8)
[2020-05-17 13:23] LABS: Calcium 8.2 mg/dL (8.5-10.1); Potassium 3.9 mmol/L (3.5-5.1)
--- NOTE | 2020-05-17 13:35 | NUR ---
INFORMED ALFRED OF ELEVATED WBC New orders for rocephin qd and flagyl 500mg qid. Orders read back and verified.
[2020-05-17] MEDS ORDERED: metroNIDAZOLE 500MG/100ML 100 ML IV SCH (14:00)
[2020-05-17] MEDS ORDERED: cefTRIAXone 1GM/50ML D5W 50 ML IV SCH (14:00)
--- NOTE | 2020-05-17 14:06 | NUR ---
IV insertion IV access obtained, via clean sterile technique by inserting 20 gauge catheter at left forearm after 3 attempts. IV secured properly. No trauma to site. Patient tolerated well.
[2020-05-17] MEDS ORDERED: MEROPENEM 500MG IVPB 50 ML IV ONE (14:15)
--- NOTE | 2020-05-17 14:18 | NUR ---
MARQUEZ AT BEDSIDE Updated on the patient status, plan of care was discussed with the patient and he verbalized understanding. All questions answered. No new orders received.
[2020-05-17] MEDS: SODIUM CHLORIDE 0.9% 1,000 ML IV SCH (14:38)
[2020-05-17 16:42] VITALS: BP 140/72
[2020-05-17 22:00] VITALS: BP 128/66
[2020-05-17] MEDS: ARTIFICIAL TEARS 15ml EACHEYE SCH (22:00)
[2020-05-17] MEDS: MEROPENEM 1GM IVPB 100 ML IV SCH (22:42)
--- NOTE | 2020-05-17 23:41 | NUR ---
Respiratory note: AT BEDSIDE, SPUTUM SAMPLE CUP EMPTY. PT UNABLE TO PROVIDE SAMPLE AT THIS TIME. PT IS CURRENTLY SLEEPING. SPOKE TO RN, AWARE OF ORDER. WILL ENDORSE TO DAY SHIFT RT FOR SPUTUM SAMPLE .
[2020-05-18 05:00] VITALS: BP 130/64
[2020-05-18] MEDS: MEROPENEM 1GM IVPB 100 ML IV SCH ×3 (05:12→21:42)
--- NOTE | 2020-05-18 06:50 | NUR ---
SPUTUM CULTURE COLLECTED AND SENT TO LAB.
--- NOTE | 2020-05-18 07:20 | NUR ---
End of Shift Note Endorsed care to dayshift RN. At this time patient has no s/s of distress or SOB.
[2020-05-18 08:00] VITALS: BP 126/84
[2020-05-18 08:45] LABS: Basophils # (auto) 0.1 10 ^3/uL (0-0.2); Basophils % (auto) 0.6 % (0.0-2.0); Eosinophils # (auto) 0.4 10 ^3/uL (0-0.8); Eosinophils % (auto) 3.1 % (0.0-7.0); Hematocrit 31.6 % (41.0-53.0); Hemoglobin 10.4 g/dL (13.5-17.5); Lymphocytes # (auto) 0.7 10 ^3/uL (0.4-5.4); Lymphocytes % (auto) 6.2 % (10.0-50.0); Mean Corpuscular Hemoglobin 29.9 pg (28.0-32.0); Mean Corpuscular Hgb Conc. 33.1 g/dL (32.0-36.0); Mean Corpuscular Volume 90.4 fL (80.0-100.0); Monocytes % (auto) 8.6 % (0.0-12.0); Neutrophils # (auto) 9.2 10 ^3/uL (1.6-8.6); Neutrophils % (auto) 81.5 % (37.0-80.0); Platelet Count (auto) 191 10^3/uL (140-450); Red Cell Distribution Width 15.9 % (11.8-14.3); White Blood Cell 11.2 10^3/uL (4.4-10.8)
[2020-05-18 08:59] LABS: INR 1.16 (0.9-1.15)
[2020-05-18 09:00] VITALS: BP 126/84
[2020-05-18 09:04] LABS: Albumin 1.8 g/dL (3.4-5.0); Potassium 3.8 mmol/L (3.5-5.1)
[2020-05-18 09:10] LABS: Bilirubin, Total 0.5 mg/dL (0.2-1.0); Total Protein 6.1 g/dL (6.4-8.2)
[2020-05-18] MEDS: ARTIFICIAL TEARS 15ml EACHEYE SCH ×2 (10:00→21:42)
[2020-05-18] MEDS: FINASTERIDE 5 MG TAB PO SCH (10:06)
[2020-05-18] MEDS: PREGABALIN 25 MG CAP PO SCH (10:06)
--- NOTE | 2020-05-18 12:18 | NUR ---
sputum done and sent to lab by neena
[2020-05-18 13:00] VITALS: BP 118/56
[2020-05-18 17:00] VITALS: BP 123/60
--- NOTE | 2020-05-18 19:10 | NUR ---
Opening Shift Note Assumed care of patient from day shift RN, patient awake and alert and oriented x4. No S/S of distress/SOB or pain. Instructed on POC and to call for assist PRN, safety measures in place call light with in reach, bed in lowest position side rails up x2 will continue to monitor for changes Q1hr and PRN.
[2020-05-18] MEDS: LACTULOSE 20Gm/30ML SOLN PO PRN (21:42)
[2020-05-18] MEDS: SODIUM CHLORIDE 0.9% 1,000 ML IV SCH (21:52)
[2020-05-18 22:00] VITALS: BP 120/72
[2020-05-19 05:00] VITALS: BP 124/71
[2020-05-19] MEDS: MEROPENEM 1GM IVPB 100 ML IV SCH ×3 (05:09→22:00)
[2020-05-19 08:29] VITALS: BP 118/71
[2020-05-19] MEDS: ARTIFICIAL TEARS 15ml EACHEYE SCH ×2 (10:00→22:00)
[2020-05-19] MEDS: FINASTERIDE 5 MG TAB PO SCH (10:12)
[2020-05-19] MEDS: PREGABALIN 25 MG CAP PO SCH (10:13)
--- NOTE | 2020-05-19 10:20 | NUR ---
MD AT BEDSIDE DR. ZAYAS WAS IN TO SEE PATIENT AND MD STATED THAT HE CAN BE DISCHARGE PER PULMO AND WILL SEE PATIENT IN 6 WEEKS FOR FOLLOW UP.
[2020-05-19 12:33] VITALS: BP 126/70
--- NOTE | 2020-05-19 16:29 | NUR ---
Nutrition Assessment Notes Please refer to link for full assessment notes. Est Energy needs: 5344-1366 kcals (20-23 kcal/kgBW) Est Protein needs: 78-86 gms/day (1.0-1.1 gm/kgBW) Will continue to monitor and reassess prn. Addendum: 05/19/20 at [address] Amended: Links added.
[2020-05-19 17:00] VITALS: BP 134/86
--- NOTE | 2020-05-19 19:35 | NUR ---
Opening Shift Note Assumed care of patient, awake and alert. No S/S of distress/SOB or pain. Bed is locked in lowest position with call light within reach. Instructed on POC and to call for assist PRN, will continue to monitor for changes Q1hr and PRN.
[2020-05-19 21:58] VITALS: BP 137/74
--- NOTE | 2020-05-19 22:15 | NUR ---
MEDICATION REFUSAL The patient refused the eye drops stating that "it does not work". Patient educated on the importance of medication compliance. Patient verbalized understanding but continues to refuse.
[2020-05-20] VITALS (7 sets, daily range): BP systolic 115–131; BP diastolic 51–72
[2020-05-20] MEDS: MEROPENEM 1GM IVPB 100 ML IV SCH ×3 (06:00→23:20)
[2020-05-20] MEDS: ARTIFICIAL TEARS 15ml EACHEYE SCH ×2 (10:00→22:00)
[2020-05-20] MEDS: FINASTERIDE 5 MG TAB PO SCH (10:27)
[2020-05-20] MEDS: PREGABALIN 25 MG CAP PO SCH (10:27)
[2020-05-20] MEDS: SODIUM CHLORIDE 0.9% 1,000 ML IV SCH ×2 (20:05)
[2020-05-21 05:00] VITALS: BP 126/72
[2020-05-21] MEDS: MEROPENEM 1GM IVPB 100 ML IV SCH ×3 (06:14→22:00)
--- NOTE | 2020-05-21 07:30 | NUR ---
Opening Shift Note Received report from supervisor harvesting RN. Assumed care of patient, awake and alert. No S/S of distress/SOB or pain. Instructed on POC and to calling for assistance PRN, will continue to monitor for changes Q1hr and PRN.
[2020-05-21 08:49] VITALS: BP 122/68
[2020-05-21] MEDS: PREGABALIN 25 MG CAP PO SCH (10:36)
[2020-05-21] MEDS: FINASTERIDE 5 MG TAB PO SCH (10:36)
[2020-05-21] MEDS: ARTIFICIAL TEARS 15ml EACHEYE SCH ×2 (10:37→22:00)
[2020-05-21] MEDS: LACTULOSE 20Gm/30ML SOLN PO PRN (10:37)
[2020-05-21 14:00] VITALS: BP 124/72
--- NOTE | 2020-05-21 16:00 | NUR ---
IV FLUIDS NEW BAG OF IV FLUIDS NOT NEEDED AT THIS TIME. PREVIOUS BAG STILL INFUSING.
[2020-05-21 17:29] VITALS: BP 130/82
--- NOTE | 2020-05-21 19:15 | NUR ---
CHANGE OF SHIFT REPORT GIVEN TO ACTUARIAL SCIENCE TEACHER RN. PT STABLE AT THIS TIME.
[2020-05-21] MEDS: SODIUM CHLORIDE 0.9% 1,000 ML IV SCH (19:20)
--- NOTE | 2020-05-21 19:30 | NUR ---
Opening Shift Note Assumed care of patient, awake and alert. No S/S of distress/SOB or pain. Instructed on POC and to call for assist PRN, will continue to monitor for changes Q1hr and PRN.
[2020-05-21 20:00] VITALS: BP 120/70
[2020-05-21 22:00] VITALS: BP 120/70
[2020-05-22 05:00] VITALS: BP_SYST 122; BP_SYST 125; BP_DIAS 65; BP_DIAS 74
[2020-05-22] MEDS: MEROPENEM 1GM IVPB 100 ML IV SCH (06:26)
--- NOTE | 2020-05-22 07:20 | NUR ---
Opening Shift Note Assumed care of patient, awake and alert. No S/S of distress/SOB or pain. Instructed on POC and to call for assist PRN. Bed locked in lowest position, side rails up x2, call light within reach. Will continue to monitor for changes Q1hr and PRN.
[2020-05-22 08:54] VITALS: BP 128/76
[2020-05-22] MEDS: FINASTERIDE 5 MG TAB PO SCH (09:42)
[2020-05-22] MEDS: PREGABALIN 25 MG CAP PO SCH (09:43)
[2020-05-22] MEDS: ARTIFICIAL TEARS 15ml EACHEYE SCH (09:46)
[2020-05-22] MEDS: SODIUM CHLORIDE 0.9% 1,000 ML IV SCH (12:00)
[2020-05-22 12:44] VITALS: BP 119/69
--- NOTE | 2020-05-22 14:30 | NUR ---
Assessment This is an 84-year-old male, who is alert and oriented. Patient cognitive abilities are intact. Patient stated that he can do all ADLs and ambulates independently. Patient stated that he is retired and lives alone. Patient stated that he receives social security for monthly income. Patient stated that he has a son Jae ([phone]). Patient stated that his son is his support system. Patient stated that he has an Advance Directive that is completed and on file at [facility]. Patient stated that he is not receptive to receive home health services for ADLs or Physical therapy purposes. Discharge planning: Patient will follow up with his PCP post discharge. Patient will resume previous home activities post discharge. Patient has no post discharge needs identified. Addendum: 05/22/20 at 1431 by ANAND ESCOTO Amended: Links added.
[2020-05-22 14:54] LABS: Basophils # (auto) 0.1 10 ^3/uL (0-0.2); Basophils % (auto) 0.8 % (0.0-2.0); Eosinophils # (auto) 0.4 10 ^3/uL (0-0.8); Eosinophils % (auto) 6.3 % (0.0-7.0); Hematocrit 34.3 % (41.0-53.0); Hemoglobin 11.4 g/dL (13.5-17.5); Lymphocytes # (auto) 0.7 10 ^3/uL (0.4-5.4); Lymphocytes % (auto) 9.6 % (10.0-50.0); Mean Corpuscular Hemoglobin 30.2 pg (28.0-32.0); Mean Corpuscular Hgb Conc. 33.2 g/dL (32.0-36.0); Mean Corpuscular Volume 90.8 fL (80.0-100.0); Monocytes # (auto) 0.6 10 ^3/uL (0-1.3); Monocytes % (auto) 8.6 % (0.0-12.0); Neutrophils # (auto) 5.1 10 ^3/uL (1.6-8.6); Neutrophils % (auto) 74.7 % (37.0-80.0); Platelet Count (auto) 194 10^3/uL (140-450); Red Blood Cells 3.77 10^6/uL (4.5-5.90); Red Cell Distribution Width 16.1 % (11.8-14.3); White Blood Cell 6.8 10^3/uL (4.4-10.8)
[2020-05-22] MEDS ORDERED: cefTRIAXone 1GM/50ML D5W 50 ML IV ONE ×2 (15:00→16:15)
[2020-05-22 15:09] LABS: INR 1.13 (0.9-1.15)
[2020-05-22 16:54] VITALS: BP 122/72
--- NOTE | 2020-05-22 17:01 | NUR ---
D/C planning Per social service consult for home health IV abx. [employer]oir [employer] Advisor Xiomara will complete IV abx. Faxed clinical information to [facility]. Per Kenna with agency they will see patient within 24hrs upon d/c day.
--- NOTE | 2020-05-22 18:15 | NUR ---
PICC line placement Patient/Patient significant other educated on need for PICC line placement. All risks and benefits explained and all questions and concerns addressed prior to procedure. Noted past medical history and allergies with no contraindications. INR and Plt counts within acceptable range. 4 fr PICC line inserted via right brachial vein using [employer]'s [employer] US and Tip Location System. Sterile technique with maximum barrier precautions utilized. Blood return obtained from the single lumen and each flushed easily with NS using proper technique. PICC secured with Stat-lock; biodisc and occlusive dressing applied. Location of tip verified with 3CG technology and line is ok to use. Primary RN Wendi notified. *Baseline Arm Circumference 28cm Internal length 39 cm External Length 1 cm PICC lot # [id number]
--- NOTE | 2020-05-22 18:50 | NUR ---
Discharge instructions given as ordered. Encourage to follow up with PMD as instructed. All questions and concerns addressed. Patient verbalized understanding. Medication reconciliation form completed and copy given to patient. IV removed with catheter intact, pressure dressing applied. Patient has PICC line in place for home IV antibiotics to be provided by [facility]. Patient is pending black pickler from spouse.
--- NOTE | 2020-05-22 19:04 | NUR ---
Patient taken to vehicle via wheelchair with all personal belongings, accompanied by staff. No distress noted at time of departure.
[2020-05-23] MEDS ORDERED: cefTRIAXone 1GM/50ML D5W 50 ML IV SCH (09:00)
--- NOTE | 2020-05-23 10:19 | NUR ---
1000 05/23/20 - Faxed to [facility] at [phone] face sheet, updated order for home IV ABx, IV Rocephin 1 Gram, PICC note and discharge summary. Faxed to [facility] at [phone] face sheet, order for IV home ABx Rocephin 1 Gram IV once a day x 6 weeks, H/P, labs, meds, PICC line note, discharge summary. Pending review and delivery of IV supplies to patient's home.
--- NOTE | 2020-05-23 11:20 | NUR ---
1100 05/23/20 - Contacted [facility] at [phone] spoke with corporate travel coordinator who confirmed receiving updated orders for home IV ABx. Coordinator stated nurse will visit patient later this afternoon or head waitress on 05/24/20. Contacted [facility] at [phone], spoke with Brie who confirmed receiving all faxed documentation and stated she is working on setting up delivery of IV supplies for patient. Brie stated she would provide follow-up call with date and time IV supplies would be delivered to patient home.
--- NOTE | 2020-05-23 15:36 | NUR ---
1400 05/23/20 - Infusion company changed to [facility], faxed face sheet, order for home IV Abx to [facility] at [phone]. Spoke with residential coordinator Anyi who confirmed receiving all faxed documentation. She state the home IV supplies would be delivered today between 1999 and 2199, she also stated contact had been made with patient who had agreed with time of deliver of supplies.
== END 2020-05-22 19:05 | disposition home health service (06) | DRG 871 ==
LOC: WEST WING 11:38
PROVIDERS: ADMIT Internal Medicine Cardiovascular Disease; ATTEND Internal Medicine Cardiovascular Disease
PROC: 02HV33Z Insertion of Infusion Device into Superior Vena Cava, Percutaneous Approach (ICD-10-PCS; principal; 2020-05-22)
DX: A41.9 Sepsis, unspecified organism (principal); J85.1 Abscess of lung with pneumonia; R64 Cachexia; I50.22 Chronic systolic (congestive) heart failure; J44.0 Chronic obstructive pulmonary disease with (acute) lower respiratory infection; I25.5 Ischemic cardiomyopathy; I25.10 Atherosclerotic heart disease of native coronary artery without angina pectoris; Z82.49 Family history of ischemic heart disease and other diseases of the circulatory system; Z83.3 Family history of diabetes mellitus; Z82.3 Family history of stroke; Z98.61 Coronary angioplasty status; Z88.1 Allergy status to other antibiotic agents; Z88.0 Allergy status to penicillin
CPT/HCPCS: 36415; 36569; 71045; 80048; 80053; 85025; 85610; 85730; 86606; 86635; 87070; 87077; 87081; 87186; 87205; G0378; J0696; J2185

== ENCOUNTER → 2020-06-05 | Outpatient (CLI) | payer MEDICARE, OTHER ==
[~2020-06-05] MED LIST changes: -BIMA0.01 EACHEYE; +CHOL500021 OR; +DORZ2SOL18 EACHEYE; +FINA5TAB4 PO; +LATA0.0020 EACHEYE; -POM PO; +PSYL28PO3; -TIMO0.5S32 OP
== END | disposition home or self-care (01) ==
LOC: Rad HDHVI 11:36
PROVIDERS: ATTEND Internal Medicine Cardiovascular Disease
DX: R06.02 Shortness of breath (principal); Z95.0 Presence of cardiac pacemaker
CPT/HCPCS: 71046

== ENCOUNTER → 2020-06-19 | Outpatient (CLI) | payer MEDICARE, OTHER ==
[~2020-06-19] MED LIST changes: +IOHEXOL 350 MG/ML 100ML IJ ONE
[2020-06-19 12:20] VITALS: BP 118/60
[2020-06-19 13:49] VITALS: BP 149/68
== END | disposition home or self-care (01) ==
LOC: Rad HDHVI 12:12
PROVIDERS: ATTEND Internal Medicine Cardiovascular Disease
DX: J98.11 Atelectasis (principal); R91.8 Other nonspecific abnormal finding of lung field; R94.4 Abnormal results of kidney function studies; R59.0 Localized enlarged lymph nodes; Z95.0 Presence of cardiac pacemaker
CPT/HCPCS: 36415; 71260; 82565; G0463; Q9967

== ENCOUNTER → 2020-07-24 | Outpatient (CLI) | payer MEDICARE, OTHER ==
[2020-07-24 09:50] VITALS: BP 136/66
[2020-07-24 12:46] VITALS: BP 145/66
== END | disposition home or self-care (01) ==
LOC: Rad HDHVI 09:34
PROVIDERS: ATTEND Internal Medicine Cardiovascular Disease
DX: J47.9 Bronchiectasis, uncomplicated (principal); J84.10 Pulmonary fibrosis, unspecified; J84.89 Other specified interstitial pulmonary diseases; J18.9 Pneumonia, unspecified organism; R94.4 Abnormal results of kidney function studies; J98.4 Other disorders of lung
CPT/HCPCS: 36415; 71260; 82565; 84520; G0463; Q9967

== ENCOUNTER → 2020-08-29 | Outpatient (CLI) | payer MEDICARE, OTHER ==
[~2020-08-29] MED LIST changes: -IOHEXOL 350 MG/ML 100ML IJ ONE
== END | disposition home or self-care (01) ==
LOC: Rad HDHVI 10:13
PROVIDERS: ATTEND Internal Medicine Cardiovascular Disease
DX: J98.11 Atelectasis (principal); R06.02 Shortness of breath; J98.4 Other disorders of lung; I70.0 Atherosclerosis of aorta; M47.814 Spondylosis without myelopathy or radiculopathy, thoracic region
CPT/HCPCS: 71046

== ENCOUNTER → 2021-05-07 | Outpatient (CLI) | payer MEDICARE, OTHER | END | disposition home or self-care (01) | LOC: Rad HDHVI 08:51 | PROVIDERS: ATTEND Internal Medicine Cardiovascular Disease | DX: I10 Essential (primary) hypertension (principal); R06.02 Shortness of breath | CPT/HCPCS: 93306 ==

== ENCOUNTER → 2021-05-10 | Outpatient (CLI) | payer MEDICARE, OTHER ==
[~2021-05-10] VITALS: Ht 182.9 cm; Wt 77.1 kg
[~2021-05-10] MED LIST changes: +ADENOSINE 65 MG in GIVE UN-DILUTED 0 ML IV ONE; +ADENOSINE 90 MG/30 ML INJ IV ONE
== END | disposition home or self-care (01) ==
LOC: Rad HDHVI 08:53
PROVIDERS: ATTEND Internal Medicine Cardiovascular Disease
DX: I25.10 Atherosclerotic heart disease of native coronary artery without angina pectoris (principal); I10 Essential (primary) hypertension; E78.5 Hyperlipidemia, unspecified; Z95.0 Presence of cardiac pacemaker
CPT/HCPCS: 78452; 93005; 96374; 96375; A9500; J0153

== ENCOUNTER → 2021-08-29 | Outpatient (CLI) | payer MEDICARE, OTHER ==
[~2021-08-29] MED LIST changes: -ADENOSINE 65 MG in GIVE UN-DILUTED 0 ML IV ONE; -ADENOSINE 90 MG/30 ML INJ IV ONE; +READI-CAT 2 (BARIUM SULF)(VANILLA SMOOTHIE) 450ML ONE
== END | disposition home or self-care (01) ==
LOC: Rad HDHVI 14:06
PROVIDERS: ATTEND Internal Medicine Cardiovascular Disease
DX: I70.0 Atherosclerosis of aorta (principal); R10.9 Unspecified abdominal pain; R64 Cachexia; Z95.0 Presence of cardiac pacemaker
CPT/HCPCS: 74176

== ENCOUNTER → 2021-12-25 | Outpatient (CLI) | payer MEDICARE, OTHER ==
[~2021-12-25] MED LIST changes: -READI-CAT 2 (BARIUM SULF)(VANILLA SMOOTHIE) 450ML ONE
== END | disposition home or self-care (01) ==
LOC: Rad HDHVI 08:49
PROVIDERS: ATTEND Internal Medicine Cardiovascular Disease
DX: I77.819 Aortic ectasia, unspecified site (principal); R00.2 Palpitations; I10 Essential (primary) hypertension
CPT/HCPCS: 93306

== ENCOUNTER → 2022-01-02 | Outpatient (CLI) | payer MEDICARE, OTHER ==
[~2022-01-02] VITALS: Ht 182.9 cm; Wt 77.1 kg
[~2022-01-02] MED LIST changes: +ADENOSINE 65 MG in GIVE UN-DILUTED 0 ML IV ONE; +ADENOSINE 90 MG/30 ML INJ IV ONE
== END | disposition home or self-care (01) ==
LOC: Rad HDHVI 08:23
PROVIDERS: ATTEND Internal Medicine Cardiovascular Disease
DX: I25.10 Atherosclerotic heart disease of native coronary artery without angina pectoris (principal); R06.02 Shortness of breath; E78.5 Hyperlipidemia, unspecified; I10 Essential (primary) hypertension; R42 Dizziness and giddiness; E11.9 Type 2 diabetes mellitus without complications; Z95.0 Presence of cardiac pacemaker
CPT/HCPCS: 78452; 93005; 96374; 96375; A9500; J0153

== ENCOUNTER → 2022-08-23 | Outpatient (CLI) | payer MEDICARE, OTHER ==
[~2022-08-23] MED LIST changes: -ADENOSINE 65 MG in GIVE UN-DILUTED 0 ML IV ONE; -ADENOSINE 90 MG/30 ML INJ IV ONE
[2022-08-23 11:59] LABS: Basophils # (auto) 0.1 10 ^3/uL (0-0.2); Basophils % (auto) 0.9 % (0.0-2.0); Eosinophils # (auto) 0.8 10 ^3/uL (0-0.8); Eosinophils % (auto) 10.4 % (0.0-7.0); Hematocrit 38.3 % (41.0-53.0); Lymphocytes # (auto) 1.2 10 ^3/uL (0.4-5.4); Lymphocytes % (auto) 14.8 % (10.0-50.0); Mean Corpuscular Hemoglobin 31.4 pg (28.0-32.0); Mean Corpuscular Volume 92.5 fL (80.0-100.0); Monocytes # (auto) 0.8 10 ^3/uL (0-1.3); Monocytes % (auto) 10.5 % (0.0-12.0); Neutrophils % (auto) 63.4 % (37.0-80.0); Red Blood Cells 4.14 10^6/uL (4.5-5.90); Red Cell Distribution Width 14.1 % (11.8-14.3); White Blood Cell 7.9 10^3/uL (4.4-10.8)
[2022-08-23 12:02] LABS: Urine Blood Negative /uL (Negative); Urine Specific Gravity 1.019 (1.001-1.035)
[2022-08-23 12:15] LABS: Albumin 3.5 g/dL (3.4-5.0); Calcium 8.8 mg/dL (8.5-10.1); Potassium 4.2 mmol/L (3.5-5.1)
[2022-08-23 12:21] LABS: BUN/Creatinine Ratio 19.9; Bilirubin, Total 0.6 mg/dL (0.2-1.0); Total Protein 6.8 g/dL (6.4-8.2)
[2022-08-23 12:24] LABS: Free T4 (Free Thyroxine) 1.13 ng/dL (0.89-1.76); Prostate Specific Antigen 0.38 ng/mL (0.0-4.0)
== END | disposition home or self-care (01) ==
LOC: LAB 08:03
PROVIDERS: ATTEND Internal Medicine Cardiovascular Disease
DX: I25.5 Ischemic cardiomyopathy (principal); E55.9 Vitamin D deficiency, unspecified; D51.3 Other dietary vitamin B12 deficiency anemia; E11.9 Type 2 diabetes mellitus without complications; D64.9 Anemia, unspecified; I10 Essential (primary) hypertension; R00.2 Palpitations; R53.1 Weakness; R30.0 Dysuria; C61 Malignant neoplasm of prostate
CPT/HCPCS: 36415; 80053; 80061; 81003; 82306; 82607; 83036; 84153; 84403; 84439; 84443; 85025

== ENCOUNTER → 2022-10-24 | Outpatient (CLI) | payer MEDICARE, OTHER | END | disposition home or self-care (01) | LOC: Rad HDHVI 09:06 | PROVIDERS: ATTEND Internal Medicine Cardiovascular Disease | DX: K57.30 Diverticulosis of large intestine without perforation or abscess without bleeding (principal); I70.0 Atherosclerosis of aorta; M47.819 Spondylosis without myelopathy or radiculopathy, site unspecified | CPT/HCPCS: 74176 ==

== ENCOUNTER 2022-11-21 09:23 | Day surgery (SDC) | payer MEDICARE, OTHER ==
[2022-11-19 14:04] LABS: Basophils # (auto) 0.1 10 ^3/uL (0-0.2); Basophils % (auto) 0.8 % (0.0-2.0); Eosinophils # (auto) 0.6 10 ^3/uL (0-0.8); Eosinophils % (auto) 8.3 % (0.0-7.0); Hematocrit 41.3 % (41.0-53.0); Hemoglobin 13.7 g/dL (13.5-17.5); Lymphocytes # (auto) 0.8 10 ^3/uL (0.4-5.4); Lymphocytes % (auto) 12.7 % (10.0-50.0); Mean Corpuscular Hemoglobin 30.2 pg (28.0-32.0); Mean Corpuscular Hgb Conc. 33.3 g/dL (32.0-36.0); Mean Corpuscular Volume 90.6 fL (80.0-100.0); Monocytes # (auto) 0.7 10 ^3/uL (0-1.3); Monocytes % (auto) 10.3 % (0.0-12.0); Neutrophils # (auto) 4.5 10 ^3/uL (1.6-8.6); Neutrophils % (auto) 67.9 % (37.0-80.0); Nucleated Red Blood Cells % 0.2 %; Red Blood Cells 4.55 10^6/uL (4.5-5.90); Red Cell Distribution Width 14.3 % (11.8-14.3); White Blood Cell 6.6 10^3/uL (4.4-10.8)
[2022-11-19 14:19] LABS: INR 1.03 (0.9-1.15); Partial Thromboplastin Time 27.3 sec (24.6-33.4)
[2022-11-19 15:08] LABS: Albumin 3.6 g/dL (3.4-5.0); Calcium 9.1 mg/dL (8.5-10.1); Potassium 4.6 mmol/L (3.5-5.1)
[2022-11-19 15:11] LABS: BUN/Creatinine Ratio 18.8 (10.0-20.0); Bilirubin, Total 0.4 mg/dL (0.2-1.0); Total Protein 8.8 g/dL (6.4-8.2)
[~2022-11-21] VITALS: Ht 182.9 cm; Wt 81.6 kg
[~2022-11-21 09:23] MED LIST changes: +ASCO500T11 PO; +BIMA0.01 OP; +CHOL200021 PO; -CHOL500021 OR; -DICL1GEL26 TD; +IBUP800T27 PO; +LACT10SO70 PO; -MELO1TAB56 PO; +PANT40TA2 PO; +TAMS0.4C36 PO; -TRAM50TA2 PO; +TRIA37.56 PO; +VALS40TA2 PO; +ZINC50TA27 PO
[2022-11-21] MEDS ORDERED: diphenhdrAMINE HCL 50 MG/1 ML VL ONE (10:14)
[2022-11-21] MEDS ORDERED: LIDOCAINE VISCOUS 2% 15ML UD ONE (10:14)
[2022-11-21] MEDS ORDERED: MIDAZOLAM HCL 2MG/2ML 2ml VIAL (1mg/ml) ONE (10:14)
[2022-11-21] MEDS ORDERED: fentaNYL CITRATE 100 MCG/2 ML VL ONE (10:14)
[2022-11-21 11:29] VITALS: BP 110/60
== END 2022-11-21 11:48 | disposition home or self-care (01) ==
LOC: GI 09:23
PROVIDERS: ATTEND Internal Medicine Gastroenterology
DX: R10.13 Epigastric pain (principal); K29.50 Unspecified chronic gastritis without bleeding; E11.9 Type 2 diabetes mellitus without complications; I10 Essential (primary) hypertension; E78.5 Hyperlipidemia, unspecified; Z90.49 Acquired absence of other specified parts of digestive tract; G89.29 Other chronic pain; Z79.899 Other long term (current) drug therapy; Z79.84 Long term (current) use of oral hypoglycemic drugs
CPT/HCPCS: 36415; 43239; 80053; 85025; 85610; 85730; 88305; 88342; J1200; J2250; J3010; J7030

== ENCOUNTER 2023-04-23 07:23 | Inpatient (IN) | payer MEDICARE, OTHER ==
[~2023-04-23] VITALS: Ht 182.9 cm; Wt 80.0 kg
[~2023-04-23 07:23] MED LIST changes: -CLOT1CRE13 TOP; +CLOT1CRE51 TOP; +IBUP-1456 PO; -IBUP800T27 PO; -SIMV-8 PO; +SIMV20TA20 PO; -TRIA37.56 PO; +TRIA37.587 PO
[2023-04-23 07:44] LABS: Hemoglobin 17.7 g/dL (13.5-17.5); White Blood Cell 15.4 10^3/uL (4.4-10.8)
[2023-04-23 07:46] LABS: Mean Corpuscular Hemoglobin 30.7 pg (28.0-32.0); Mean Corpuscular Hgb Conc. 33.5 g/dL (32.0-36.0); Mean Corpuscular Volume 91.8 fL (80.0-100.0); Red Blood Cells 5.77 10^6/uL (4.5-5.90); Red Cell Distribution Width 15.6 % (11.8-14.3)
[2023-04-23 07:52] LABS: Basophils % (manual) 0 (0.0-2.0); Blast Cells 0; Metamyelocytes % 0; Myelocytes % 0; Promyelocytes % 0; Reactive Lymphocytes 0
[2023-04-23] MEDS ORDERED: SODIUM CHLORIDE 0.9% 1,000 ML IV ONE ×2 (08:00)
[2023-04-23] MEDS ORDERED: VANCOMYCIN 1GM/250ML 250 ML IV ONE (08:00)
[2023-04-23] MEDS ORDERED: AZTREONAM 1GM INJ 1 GM in D5W 5% 50 ML IV ONE (08:00)
[2023-04-23] MEDS ORDERED: MORPHINE SULFATE 4 MG/ML SYR/VIAL IV ONE (08:00)
[2023-04-23] MEDS ORDERED: ONDANSETRON HCL 4 MG/2 ML VIAL IV ONE (08:00)
[2023-04-23] MEDS ORDERED: CIPROFLOXACIN 400MG/200ML 200 ML IV ONE (08:00)
[2023-04-23 08:05] LABS: Albumin 4.1 g/dL (3.2-4.8); Alkaline Phosphatase 62 U/L (46-116); Anion Gap 12 (5-15); Aspartate Aminotransferase 12 U/L (13-40); BUN/Creatinine Ratio 9.9 (10.0-20.0); Bilirubin, Total 1.4 mg/dL (0.2-1.0); Blood Urea Nitrogen 27 mg/dL (9-23); Calcium 9.5 mg/dL (8.5-10.1); Carbon Dioxide 24 mmol/L (20-30); Chloride 98 mmol/L (98-107); Glucose 169 mg/dL (74-106); Potassium 4.5 mmol/L (3.5-5.1); Sodium 134 mmol/L (136-145); Total Protein 7.8 g/dL (5.7-8.2)
[2023-04-23 08:06] LABS: Alanine Aminotransferase 9 U/L (7-40)
[2023-04-23 08:27] VITALS: O2SAT 97
[2023-04-23 08:27] LABS: INR 1.18 (0.9-1.15); Prothrombin Time 12.3 sec (9.3-11.8)
[2023-04-23 08:48] LABS: Band Neutrophils % (manual) 10; Eosinophils % (manual) 1 (0-7); Lymphocytes % (manual) 4 (10.0-50.0); Monocytes % (manual) 8 (0-12); Platelet Estimate Adequate
[2023-04-23] MEDS ORDERED: HYDROcodone-ACET 5/325MG TAB PO PRN (09:00)
[2023-04-23] MEDS ORDERED: MORPHINE SULFATE INJ 2 MG/ml SYRG IV PRN (09:00)
[2023-04-23] MEDS ORDERED: ACETAMINOPHEN 325 MG TAB PO PRN (09:00)
[2023-04-23] MEDS ORDERED: NITROGLYCERIN 0.4 MG SL TAB SL PRN (09:00)
[2023-04-23] MEDS ORDERED: PANTOPRAZOLE 40 MG/10 ML VIAL INJ IV ONE (09:15)
[2023-04-23] MEDS ORDERED: ASCORBIC ACID 500 MG TAB PO SCH (10:00)
[2023-04-23] MEDS ORDERED: VALSARTAN PO SCH (10:00)
[2023-04-23] MEDS ORDERED: TRIAMTERENE/HCTZ 37.5/25 MG CAP/TAB PO SCH (10:00)
[2023-04-23] MEDS ORDERED: FINASTERIDE 5 MG TAB PO SCH (10:00)
[2023-04-23] MEDS ORDERED: TAMSULOSIN HYDROCHLORIDE 0.4 MG CAP PO SCH (10:00)
[2023-04-23] MEDS: DORZOLAMIDE TIMOLOL EACHEYE SCH ×2 (10:00→21:33)
[2023-04-23] MEDS ORDERED: ZINC 50 MG PO SCH (10:00)
[2023-04-23] MEDS: EYE EACHEYE SCH ×2 (10:00→21:33)
[2023-04-23] MEDS: ENOXAPARIN SOD 30 MG/0.3 ML SYRINGE SC SCH (10:35)
[2023-04-23] MEDS: SODIUM CHLORIDE 0.9% 1,000 ML IV SCH ×2 (11:00→14:00)
[2023-04-23] MEDS ORDERED: DEXTROSE (50%) 50ML SYRG IV PRN (11:00)
[2023-04-23 11:04] LABS: Magnesium 1.8 mg/dL (1.6-2.6)
[2023-04-23 11:10] LABS: Lactic Acid w/Reflex 2.9 mmol/L (0.4-2.0)
[2023-04-23] MEDS: InsuLIN REG 1unit/0.01ml Soln (100units/ml) SC SCH ×3 (11:30→21:26)
[2023-04-23] MEDS: ACCU-CHEK COMFORT CURVE STRIP VI SCH ×3 (11:50→21:34)
[2023-04-23 12:53] LABS: Urine Bacteria FEW /hpf (None Seen); Urine Blood TRACE /uL (Negative); Urine Clarity Clear (Clear); Urine Color Yellow (Yellow); Urine Hyaline Cast MANY /lpf (0 - 2); Urine Protein, UAD Negative (Negative); Urine Urobilinogen Normal (Negative); Urine WBC 9 /hpf (0 - 3)
[2023-04-23 13:07] LABS: Protein, Urine 13.4 mg/dL (0.0-11.9)
[2023-04-23 13:09] LABS: Creatinine, Urine 76.52 mg/dL (30.0-125.0)
[2023-04-23] MEDS: metroNIDAZOLE 500MG/100ML 100 ML IV SCH ×2 (14:05→21:25)
[2023-04-23] MEDS: LATANOPROST 0.005 % OPTH(EYE) SOL 2.5ML EACHEYE SCH (18:00)
[2023-04-23 19:30] VITALS: PULSE 72; PULSE 76; RESP 17
[2023-04-23 20:05] VITALS: PULSE 76; RESP 17; O2SAT 97
[2023-04-23 21:50] VITALS: BP 105/70; PULSE 84; RESP 16; TEMP 98.2; O2SAT 97
[2023-04-23] MEDS ORDERED: ATORVASTATIN 20 MG TAB PO SCH (22:00)
[2023-04-23] MEDS ORDERED: PREGABALIN 25 MG CAP PO SCH (22:00)
[2023-04-23] MEDS: CIPROFLOXACIN 400MG/200ML 200 ML IV SCH (22:29)
[2023-04-24] VITALS (9 sets, daily range): BP systolic 109–134; BP diastolic 72–82; PULSE 76–98; RESP 15–22; TEMP 97.7–98.8; O2SAT 96–99
[2023-04-24 05:54] LABS: Basophils # (auto) 0 10 ^3/uL (0-0.2); Basophils % (auto) 0.1 % (0.0-2.0); Eosinophils # (auto) 0 10 ^3/uL (0-0.8); Eosinophils % (auto) 0.1 % (0.0-7.0); Hematocrit 44.1 % (41.0-53.0); Hemoglobin 14.7 g/dL (13.5-17.5); Lymphocytes # (auto) 0.6 10 ^3/uL (0.4-5.4); Mean Corpuscular Hemoglobin 30.8 pg (28.0-32.0); Mean Corpuscular Hgb Conc. 33.3 g/dL (32.0-36.0); Mean Corpuscular Volume 92.7 fL (80.0-100.0); Monocytes # (auto) 1.4 10 ^3/uL (0-1.3); Monocytes % (auto) 12.1 % (0.0-12.0); Neutrophils # (auto) 9.9 10 ^3/uL (1.6-8.6); Neutrophils % (auto) 82.7 % (37.0-80.0); Nucleated Red Blood Cells % 0.1 %; Red Blood Cells 4.75 10^6/uL (4.5-5.90); Red Cell Distribution Width 15.3 % (11.8-14.3); White Blood Cell 11.9 10^3/uL (4.4-10.8)
[2023-04-24 06:10] LABS: Alkaline Phosphatase 53 U/L (46-116); Anion Gap 7 (5-15); Calcium 8.2 mg/dL (8.7-10.4); Carbon Dioxide 23 mmol/L (20-30); Chloride 106 mmol/L (98-107); Glucose 134 mg/dL (74-106); Potassium 4.6 mmol/L (3.5-5.1); Sodium 136 mmol/L (136-145)
[2023-04-24 06:11] LABS: BUN/Creatinine Ratio 11.9 (10.0-20.0); Blood Urea Nitrogen 27 mg/dL (9-23)
[2023-04-24 06:12] LABS: Albumin 3.4 g/dL (3.2-4.8); Aspartate Aminotransferase 11 U/L (13-40)
[2023-04-24 06:13] LABS: Bilirubin, Total 0.8 mg/dL (0.2-1.0); Total Protein 6.4 g/dL (5.7-8.2)
[2023-04-24] MEDS: ACCU-CHEK COMFORT CURVE STRIP VI SCH ×4 (06:15→21:38)
[2023-04-24] MEDS: SODIUM CHLORIDE 0.9% 1,000 ML IV SCH ×2 (06:15→11:45)
[2023-04-24] MEDS: InsuLIN REG 1unit/0.01ml Soln (100units/ml) SC SCH ×4 (06:15→21:25)
[2023-04-24] MEDS: metroNIDAZOLE 500MG/100ML 100 ML IV SCH ×3 (06:15→21:28)
[2023-04-24 06:29] LABS: Alanine Aminotransferase < 9 U/L (7-40)
[2023-04-24] MEDS: PANTOPRAZOLE 40 MG/10 ML VIAL INJ IV SCH (09:42)
[2023-04-24] MEDS: ENOXAPARIN SOD 30 MG/0.3 ML SYRINGE SC SCH (09:43)
[2023-04-24] MEDS: CIPROFLOXACIN 400MG/200ML 200 ML IV SCH ×2 (09:43→23:36)
[2023-04-24] MEDS: EYE EACHEYE SCH ×2 (10:00→21:37)
[2023-04-24] MEDS: CLOTRIMAZOLE 1 % CREAM 15GM TOP SCH (10:00)
[2023-04-24] MEDS ORDERED: ASPirin 81 mg TAB PO SCH (10:00)
[2023-04-24] MEDS: DORZOLAMIDE TIMOLOL EACHEYE SCH ×2 (10:00→21:37)
[2023-04-24] MEDS: MORPHINE SULFATE INJ 2 MG/ml SYRG IV PRN ×2 (15:12→21:31)
[2023-04-24] MEDS: LATANOPROST 0.005 % OPTH(EYE) SOL 2.5ML EACHEYE SCH (18:00)
[2023-04-25] MEDS: SODIUM CHLORIDE 0.9% 1,000 ML IV SCH (04:25)
[2023-04-25] MEDS: metroNIDAZOLE 500MG/100ML 100 ML IV SCH ×3 (05:30→22:34)
[2023-04-25 05:56] VITALS: BP 132/80; PULSE 77; RESP 20; TEMP 97.7; O2SAT 96
[2023-04-25] MEDS: InsuLIN REG 1unit/0.01ml Soln (100units/ml) SC SCH ×2 (06:10→11:30)
[2023-04-25] MEDS: ACCU-CHEK COMFORT CURVE STRIP VI SCH ×2 (06:38→11:30)
[2023-04-25 06:39] LABS: Basophils # (auto) 0 10 ^3/uL (0-0.2); Basophils % (auto) 0.2 % (0.0-2.0); Eosinophils # (auto) 0 10 ^3/uL (0-0.8); Eosinophils % (auto) 0.3 % (0.0-7.0); Hematocrit 42.3 % (41.0-53.0); Lymphocytes # (auto) 0.7 10 ^3/uL (0.4-5.4); Lymphocytes % (auto) 6.7 % (10.0-50.0); Mean Corpuscular Hemoglobin 30.5 pg (28.0-32.0); Mean Corpuscular Hgb Conc. 33.1 g/dL (32.0-36.0); Monocytes # (auto) 1.1 10 ^3/uL (0-1.3); Monocytes % (auto) 10.7 % (0.0-12.0); Neutrophils # (auto) 8.5 10 ^3/uL (1.6-8.6); Neutrophils % (auto) 82.1 % (37.0-80.0); Red Cell Distribution Width 15.2 % (11.8-14.3); White Blood Cell 10.4 10^3/uL (4.4-10.8)
[2023-04-25 06:57] LABS: Albumin 3.5 g/dL (3.2-4.8); Alkaline Phosphatase 53 U/L (46-116); Anion Gap 7 (5-15); Aspartate Aminotransferase 9 U/L (13-40); BUN/Creatinine Ratio 16.8 (10.0-20.0); Blood Urea Nitrogen 31 mg/dL (9-23); Calcium 8.1 mg/dL (8.7-10.4); Carbon Dioxide 24 mmol/L (20-30); Chloride 107 mmol/L (98-107); Glucose 120 mg/dL (74-106); Sodium 138 mmol/L (136-145)
[2023-04-25 06:58] LABS: Bilirubin, Total 0.8 mg/dL (0.2-1.0); Total Protein 6.3 g/dL (5.7-8.2)
[2023-04-25 07:07] LABS: Alanine Aminotransferase < 9 U/L (7-40)
[2023-04-25 07:30] VITALS: BP 120/78; PULSE 84; RESP 18; TEMP 97.7; O2SAT 96
[2023-04-25] MEDS: PANTOPRAZOLE 40 MG/10 ML VIAL INJ IV SCH (09:17)
[2023-04-25] MEDS: ENOXAPARIN SOD 30 MG/0.3 ML SYRINGE SC SCH (09:17)
[2023-04-25] MEDS: CIPROFLOXACIN 400MG/200ML 200 ML IV SCH ×2 (09:19→22:34)
[2023-04-25] MEDS: MORPHINE SULFATE INJ 2 MG/ml SYRG IV PRN ×2 (09:20→23:14)
[2023-04-25] MEDS: CLOTRIMAZOLE 1 % CREAM 15GM TOP SCH (10:00)
[2023-04-25] MEDS: CALCITRIOL 0.25 MCG CAP PO SCH (10:00)
[2023-04-25] MEDS: DORZOLAMIDE TIMOLOL EACHEYE SCH ×2 (10:00→22:39)
[2023-04-25] MEDS: EYE EACHEYE SCH ×2 (10:00→22:39)
[2023-04-25 13:30] VITALS: BP 120/70; PULSE 91; RESP 18; TEMP 98; O2SAT 97
[2023-04-25] MEDS: ONDANSETRON HCL 4 MG/2 ML VIAL IV PRN ×2 (15:25→22:34)
[2023-04-25] MEDS: D5W/SOD CHLO 0.9% 1,000 ML IV SCH (15:29)
[2023-04-25 17:17] VITALS: BP 130/72; PULSE 70; RESP 20; TEMP 97.7; O2SAT 97
[2023-04-25] MEDS: LATANOPROST 0.005 % OPTH(EYE) SOL 2.5ML EACHEYE SCH (18:00)
[2023-04-25 20:00] VITALS: PULSE 79; RESP 20; O2SAT 96
[2023-04-25 22:00] VITALS: BP 148/82; PULSE 81; RESP 20; TEMP 98; O2SAT 96
[2023-04-26] MEDS: ONDANSETRON HCL 4 MG/2 ML VIAL IV PRN ×2 (04:33→22:25)
[2023-04-26] MEDS: MORPHINE SULFATE INJ 2 MG/ml SYRG IV PRN ×2 (04:34→22:27)
[2023-04-26] MEDS: D5W/SOD CHLO 0.9% 1,000 ML IV SCH ×2 (04:34→19:39)
[2023-04-26 04:58] VITALS: BP 150/86; PULSE 79; RESP 16; TEMP 97.7; O2SAT 97
[2023-04-26 06:12] LABS: Alkaline Phosphatase 46 U/L (46-116); Anion Gap 10 (5-15); BUN/Creatinine Ratio 17.9 (10.0-20.0); Blood Urea Nitrogen 27 mg/dL (9-23); Calcium 8.3 mg/dL (8.5-10.1); Carbon Dioxide 24 mmol/L (20-30); Chloride 106 mmol/L (98-107); Glucose 119 mg/dL (74-106); Potassium 3.5 mmol/L (3.5-5.1); Sodium 140 mmol/L (136-145)
[2023-04-26 06:14] LABS: Albumin 3.3 g/dL (3.2-4.8); Aspartate Aminotransferase 10 U/L (13-40); Total Protein 6.1 g/dL (5.7-8.2)
[2023-04-26 06:18] LABS: Alanine Aminotransferase < 9 U/L (7-40)
[2023-04-26] MEDS: metroNIDAZOLE 500MG/100ML 100 ML IV SCH ×3 (06:21→22:25)
[2023-04-26 06:39] LABS: Basophils # (auto) 0 10 ^3/uL (0-0.2); Basophils % (auto) 0.2 % (0.0-2.0); Eosinophils # (auto) 0 10 ^3/uL (0-0.8); Eosinophils % (auto) 0.4 % (0.0-7.0); Hematocrit 40.9 % (41.0-53.0); Hemoglobin 13.7 g/dL (13.5-17.5); Lymphocytes # (auto) 0.6 10 ^3/uL (0.4-5.4); Lymphocytes % (auto) 5.8 % (10.0-50.0); Mean Corpuscular Hgb Conc. 33.4 g/dL (32.0-36.0); Mean Corpuscular Volume 92.9 fL (80.0-100.0); Monocytes # (auto) 1.1 10 ^3/uL (0-1.3); Monocytes % (auto) 10.7 % (0.0-12.0); Neutrophils # (auto) 8.2 10 ^3/uL (1.6-8.6); Neutrophils % (auto) 82.9 % (37.0-80.0); Red Blood Cells 4.41 10^6/uL (4.5-5.90); White Blood Cell 9.9 10^3/uL (4.4-10.8)
[2023-04-26 08:00] VITALS: BP 126/74; PULSE 68; PULSE 73; RESP 73; TEMP 36.5; O2SAT 97
[2023-04-26 08:33] VITALS: BP 147/79; PULSE 73; RESP 18; TEMP 99; O2SAT 97
[2023-04-26] MEDS: CLOTRIMAZOLE 1 % CREAM 15GM TOP SCH (10:00)
[2023-04-26] MEDS: CALCITRIOL 0.25 MCG CAP PO SCH (10:00)
[2023-04-26] MEDS: CIPROFLOXACIN 400MG/200ML 200 ML IV SCH ×2 (10:20→22:25)
[2023-04-26] MEDS: PANTOPRAZOLE 40 MG/10 ML VIAL INJ IV SCH (10:20)
[2023-04-26] MEDS: ENOXAPARIN SOD 40 MG/0.4 ML SYRINGE SC SCH (10:20)
[2023-04-26] MEDS: EYE EACHEYE SCH ×2 (10:29→22:26)
[2023-04-26] MEDS: DORZOLAMIDE TIMOLOL EACHEYE SCH ×2 (10:29→22:26)
[2023-04-26 16:40] VITALS: BP 154/83; PULSE 69; RESP 18; TEMP 97.9; O2SAT 98
[2023-04-26] MEDS: LATANOPROST 0.005 % OPTH(EYE) SOL 2.5ML EACHEYE SCH (18:00)
[2023-04-26 20:00] VITALS: PULSE 64; RESP 17; O2SAT 95
[2023-04-26 22:00] VITALS: BP 137/79; PULSE 73; RESP 17; TEMP 97.5; O2SAT 95
[2023-04-27] VITALS (8 sets, daily range): BP systolic 108–144; BP diastolic 66–85; PULSE 64–75; RESP 18–20; TEMP 36.5; O2SAT 94–97
[2023-04-27] MEDS: metroNIDAZOLE 500MG/100ML 100 ML IV SCH ×3 (05:25→21:19)
[2023-04-27] MEDS: CALCITRIOL 0.25 MCG CAP PO SCH (10:00)
[2023-04-27] MEDS: CLOTRIMAZOLE 1 % CREAM 15GM TOP SCH (10:00)
[2023-04-27] MEDS: CIPROFLOXACIN 400MG/200ML 200 ML IV SCH ×2 (10:17→21:20)
[2023-04-27] MEDS: PANTOPRAZOLE 40 MG/10 ML VIAL INJ IV SCH (10:17)
[2023-04-27] MEDS: D5W/SOD CHLO 0.9% 1,000 ML IV SCH (10:17)
[2023-04-27] MEDS: ENOXAPARIN SOD 40 MG/0.4 ML SYRINGE SC SCH (10:17)
[2023-04-27] MEDS: ONDANSETRON HCL 4 MG/2 ML VIAL IV PRN ×3 (10:24→23:18)
[2023-04-27] MEDS: DORZOLAMIDE TIMOLOL EACHEYE SCH ×2 (14:12→18:30)
[2023-04-27] MEDS: EYE EACHEYE SCH ×2 (14:12→18:30)
[2023-04-27] MEDS: MORPHINE SULFATE INJ 2 MG/ml SYRG IV PRN ×2 (18:24→23:19)
[2023-04-27] MEDS: LATANOPROST 0.005 % OPTH(EYE) SOL 2.5ML EACHEYE SCH (18:29)
[2023-04-28] VITALS (8 sets, daily range): BP systolic 126–148; BP diastolic 74–95; PULSE 68–87; RESP 16–21; TEMP 36.5; O2SAT 95–98
[2023-04-28] MEDS: D5W/SOD CHLO 0.9% 1,000 ML IV SCH (00:05)
[2023-04-28] MEDS: metroNIDAZOLE 500MG/100ML 100 ML IV SCH ×3 (05:44→21:44)
[2023-04-28] MEDS: ONDANSETRON HCL 4 MG/2 ML VIAL IV PRN ×2 (05:44→17:00)
[2023-04-28] MEDS: MORPHINE SULFATE INJ 2 MG/ml SYRG IV PRN ×2 (05:45→17:07)
[2023-04-28 06:32] LABS: Chloride 109 mmol/L (98-107); Potassium 3.3 mmol/L (3.5-5.1); Sodium 144 mmol/L (136-145)
[2023-04-28 06:33] LABS: Calcium 8.2 mg/dL (8.5-10.1)
[2023-04-28 06:38] LABS: BUN/Creatinine Ratio 14.4 (10.0-20.0); Blood Urea Nitrogen 19 mg/dL (9-23); Glucose 117 mg/dL (74-106)
[2023-04-28 07:01] LABS: Anion Gap 8 (5-15); Carbon Dioxide 27 mmol/L (20-30)
[2023-04-28] MEDS ORDERED: GASTROGRAFIN 30 ML SOL ONE (09:38)
[2023-04-28] MEDS: CALCITRIOL 0.25 MCG CAP PO SCH (10:00)
[2023-04-28] MEDS: CLOTRIMAZOLE 1 % CREAM 15GM TOP SCH (10:00)
[2023-04-28 11:24] LABS: Hepatitis B Core Total AB Negative (Negative)
[2023-04-28] MEDS: CIPROFLOXACIN 400MG/200ML 200 ML IV SCH ×2 (11:31→21:44)
[2023-04-28] MEDS: ENOXAPARIN SOD 40 MG/0.4 ML SYRINGE SC SCH (11:31)
[2023-04-28] MEDS: PANTOPRAZOLE 40 MG/10 ML VIAL INJ IV SCH (11:31)
[2023-04-28 12:24] LABS: Hepatitis A Total Antibody Positive (Negative); Hepatitis B Surface Antibody Negative (Negative); Hepatitis B Surface Antigen Negative (Negative); Hepatitis C Antibody Negative (Negative)
[2023-04-28] MEDS: EYE EACHEYE SCH ×2 (12:47→21:45)
[2023-04-28] MEDS: DORZOLAMIDE TIMOLOL EACHEYE SCH ×2 (12:47→21:45)
[2023-04-28] MEDS ORDERED: TPN PER PHARMACY 0 ML IV SCH (13:00)
[2023-04-28] MEDS: POTASSIUM CHL 20MEQ/100ML 100 ML IV SCH ×2 (13:00→15:00)
[2023-04-28] MEDS: D5W/SOD CHL 0.45% 1,000 ML IV SCH ×2 (13:00→23:00)
[2023-04-28 13:26] LABS: Magnesium 1.7 mg/dL (1.6-2.6)
[2023-04-28 13:27] LABS: Phosphorus 2.5 mg/dL (2.4-5.1)
[2023-04-28] MEDS ORDERED: POTASSIUM CHLORIDE 40 MEQ, LIDOCAINE 1% (LOCAL ANESTH.) 4 ML in SODIUM CHL 0.9% 250 ML IV ONE (17:15)
[2023-04-28] MEDS: LATANOPROST 0.005 % OPTH(EYE) SOL 2.5ML EACHEYE SCH (18:18)
[2023-04-28] MEDS ORDERED: DEXTROSE (50%) 50ML SYRG IV SCH (20:00)
[2023-04-28] MEDS ORDERED: AMINO ACID INFUSION IN D10W 1,000 ML IV NR (20:00)
[2023-04-29] VITALS (55 sets, daily range): BP systolic 96–183; BP diastolic 27–84; PULSE 60–80; RESP 13–19; TEMP 97–98.3; O2SAT 92–100
[2023-04-29] MEDS: metroNIDAZOLE 500MG/100ML 100 ML IV SCH ×3 (05:01→21:25)
[2023-04-29] MEDS: ACCU-CHEK COMFORT CURVE STRIP VI SCH ×5 (05:13→23:42)
[2023-04-29 06:24] LABS: Albumin 3.2 g/dL (3.2-4.8); Alkaline Phosphatase 45 U/L (46-116); Aspartate Aminotransferase 15 U/L (13-40); BUN/Creatinine Ratio 12.7 (10.0-20.0); Blood Urea Nitrogen 18 mg/dL (9-23); Calcium 8.4 mg/dL (8.7-10.4); Chloride 110 mmol/L (98-107); Glucose 127 mg/dL (74-106); Magnesium 1.7 mg/dL (1.6-2.6); Phosphorus 2.2 mg/dL (2.4-5.1); Potassium 3.5 mmol/L (3.5-5.1); Sodium 144 mmol/L (136-145)
[2023-04-29 06:25] LABS: Bilirubin, Total 0.8 mg/dL (0.2-1.0)
[2023-04-29 06:30] LABS: Basophils # (auto) 0 10 ^3/uL (0-0.2); Basophils % (auto) 0.4 % (0.0-2.0); Eosinophils # (auto) 0.1 10 ^3/uL (0-0.8); Eosinophils % (auto) 1.2 % (0.0-7.0); Hematocrit 42.9 % (41.0-53.0); Hemoglobin 14.5 g/dL (13.5-17.5); Lymphocytes # (auto) 0.6 10 ^3/uL (0.4-5.4); Lymphocytes % (auto) 5.6 % (10.0-50.0); Mean Corpuscular Hemoglobin 31.1 pg (28.0-32.0); Mean Corpuscular Hgb Conc. 33.9 g/dL (32.0-36.0); Mean Corpuscular Volume 91.9 fL (80.0-100.0); Monocytes % (auto) 10.2 % (0.0-12.0); Neutrophils # (auto) 8.5 10 ^3/uL (1.6-8.6); Neutrophils % (auto) 82.6 % (37.0-80.0); Red Blood Cells 4.67 10^6/uL (4.5-5.90); Red Cell Distribution Width 14.8 % (11.8-14.3); White Blood Cell 10.3 10^3/uL (4.4-10.8)
[2023-04-29] MEDS: InsuLIN REG 1unit/0.01ml Soln (100units/ml) SC SCH ×5 (06:31→23:54)
[2023-04-29 06:59] LABS: Anion Gap 8 (5-15); Carbon Dioxide 26 mmol/L (20-30)
[2023-04-29 07:00] LABS: Alanine Aminotransferase < 9 U/L (7-40)
[2023-04-29 07:11] LABS: Triglycerides 81 mg/dL (< 150)
[2023-04-29 07:24] LABS: INR 1.3 (0.9-1.15); Partial Thromboplastin Time 28.5 SEC (24.5-34.5); Prothrombin Time 13.4 sec (9.3-11.8)
[2023-04-29] MEDS ORDERED: HYDROmorphone HCL 2 MG/ML VL/or syr ONE ×2 (08:10→09:58)
[2023-04-29] MEDS ORDERED: fentaNYL CITRATE 100 MCG/2 ML VL ONE ×2 (08:11→10:29)
[2023-04-29] MEDS ORDERED: fentaNYL CITRATE 5 ML ONE (08:12)
[2023-04-29] MEDS ORDERED: MIDAZOLAM HCL 2MG/2ML 2ml VIAL (1mg/ml) ONE ×2 (08:12→10:57)
[2023-04-29] MEDS ORDERED: levoFLOXacin 500MG 100 ML IV ONE (08:42)
[2023-04-29] MEDS ORDERED: ROCURONIUM 10MG/ML 10ML VIAL IV ONE (10:45)
[2023-04-29] MEDS ORDERED: ACCU-CHEK COMFORT CURVE STRIP VI ONE (11:30)
[2023-04-29] MEDS ORDERED: HYDROmorphone HCL 2 MG/ML VL/or syr IV PRN (11:30)
[2023-04-29] MEDS ORDERED: fentaNYL CITRATE 100 MCG/2 ML VL IV PRN (11:30)
[2023-04-29] MEDS ORDERED: MORPHINE SULFATE 4 MG/ML SYR/VIAL IV PRN (11:30)
[2023-04-29] MEDS ORDERED: ONDANSETRON HCL 4 MG/2 ML VIAL IV PRN (11:30)
[2023-04-29] MEDS ORDERED: ePHEDrine SULFATE 50 MG/ML AMP IV PRN (11:30)
[2023-04-29] MEDS ORDERED: MIDAZOLAM HCL 2MG/2ML 2ml VIAL (1mg/ml) IV PRN (11:30)
[2023-04-29] MEDS: fentaNYL Drip 2500mCg/250mlNS 250 ML IV SCH (11:45)
[2023-04-29 12:15] LABS: Base Excess -1.3 mmol/L (-2.0-2.0)
[2023-04-29] MEDS ORDERED: POTASSIUM PHOSPHATE 22 MEQ in SODIUM CHL 0.9% 100 ML IV ONE (12:15)
[2023-04-29] MEDS: LABETALOL HCL 5 MG/ML 4ML SYRINGE IV PRN ×2 (12:37→12:53)
[2023-04-29] MEDS: CALCITRIOL 0.25 MCG CAP PO SCH (13:40)
[2023-04-29] MEDS: ENOXAPARIN SOD 40 MG/0.4 ML SYRINGE SC SCH (14:00)
[2023-04-29] MEDS: EYE EACHEYE SCH ×2 (14:00→21:24)
[2023-04-29] MEDS: MIDAZOLAM DRIP 50 mg/50mL 50 ML IV SCH (14:00)
[2023-04-29] MEDS: DORZOLAMIDE TIMOLOL EACHEYE SCH ×2 (14:00→21:24)
[2023-04-29] MEDS: CLOTRIMAZOLE 1 % CREAM 15GM TOP SCH (14:00)
[2023-04-29] MEDS: PANTOPRAZOLE 40 MG/10 ML VIAL INJ IV SCH (14:38)
[2023-04-29] MEDS: CIPROFLOXACIN 400MG/200ML 200 ML IV SCH (14:38)
[2023-04-29] MEDS ORDERED: LIDOCAINE 1% (LOCAL ANESTH.) PF 5ml SDV ID ONE (16:30)
[2023-04-29] MEDS: D5W/SOD CHL 0.45% 1,000 ML IV SCH ×2 (16:36→20:10)
[2023-04-29] MEDS: LATANOPROST 0.005 % OPTH(EYE) SOL 2.5ML EACHEYE SCH (18:00)
[2023-04-29] MEDS ORDERED: PPN PER PHARMACY IV NR ×9 (20:00)
[2023-04-29] MEDS: SODIUM CHLOR 0.9% PF (SALINE LOCK) 10ML VIAL/SYR IV SCH (21:25)
[2023-04-30] VITALS (71 sets, daily range): BP systolic 89–186; BP diastolic 29–76; PULSE 62–99; RESP 13–26; TEMP 98.2–98.8; O2SAT 95–100
[2023-04-30] MEDS: CIPROFLOXACIN 400MG/200ML 200 ML IV SCH ×3 (01:13→21:59)
[2023-04-30] MEDS: D5W/SOD CHL 0.45% 1,000 ML IV SCH ×3 (01:44→21:59)
[2023-04-30 04:22] LABS: Albumin 2.3 g/dL (3.2-4.8); Alkaline Phosphatase 31 U/L (46-116); Anion Gap 6 (5-15); Aspartate Aminotransferase 14 U/L (13-40); BUN/Creatinine Ratio 15.3 (10.0-20.0); Blood Urea Nitrogen 20 mg/dL (9-23); Carbon Dioxide 26 mmol/L (20-30); Chloride 108 mmol/L (98-107); Magnesium 1.5 mg/dL (1.6-2.6); Potassium 3.9 mmol/L (3.5-5.1); Sodium 140 mmol/L (136-145)
[2023-04-30 04:23] LABS: Bilirubin, Total 0.5 mg/dL (0.2-1.0); Phosphorus 2.3 mg/dL (2.4-5.1); Total Protein 4.4 g/dL (5.7-8.2)
[2023-04-30 04:31] LABS: Alanine Aminotransferase < 9 U/L (7-40); Glucose 287 mg/dL (74-106)
[2023-04-30] MEDS: metroNIDAZOLE 500MG/100ML 100 ML IV SCH ×3 (05:32→20:06)
[2023-04-30] MEDS: ACCU-CHEK COMFORT CURVE STRIP VI SCH ×4 (05:37→21:59)
[2023-04-30] MEDS: InsuLIN REG 1unit/0.01ml Soln (100units/ml) SC SCH ×4 (05:42→22:00)
[2023-04-30] MEDS: MORPHINE SULFATE INJ 2 MG/ml SYRG IV PRN ×2 (05:54→19:35)
[2023-04-30 07:49] LABS: Base Excess -0.1 mmol/L (-2.0-2.0)
[2023-04-30] MEDS: CALCITRIOL 0.25 MCG CAP PO SCH (09:52)
[2023-04-30] MEDS: ENOXAPARIN SOD 40 MG/0.4 ML SYRINGE SC SCH (09:53)
[2023-04-30] MEDS: CLOTRIMAZOLE 1 % CREAM 15GM TOP SCH (09:53)
[2023-04-30] MEDS: PANTOPRAZOLE 40 MG/10 ML VIAL INJ IV SCH (09:57)
[2023-04-30] MEDS: SODIUM CHLOR 0.9% PF (SALINE LOCK) 10ML VIAL/SYR IV SCH ×2 (09:58→20:04)
[2023-04-30] MEDS: DORZOLAMIDE TIMOLOL EACHEYE SCH ×2 (09:58→17:40)
[2023-04-30] MEDS: EYE EACHEYE SCH ×2 (09:58→17:40)
[2023-04-30] MEDS: fentaNYL Drip 2500mCg/250mlNS 250 ML IV SCH (11:45)
[2023-04-30] MEDS: MIDAZOLAM DRIP 50 mg/50mL 50 ML IV SCH (11:45)
[2023-04-30] MEDS: MAGNESIUM SULFATE 1GM/100ML 100 ML IV SCH ×2 (12:50→13:32)
[2023-04-30] MEDS ORDERED: chlorproMAZINE HCL 25 MG/1 ML AMP IM PRN (13:00)
[2023-04-30] MEDS ORDERED: CALCIUM GLUC 1,000mg/50ml-NS 50 ML IV ONE (14:00)
[2023-04-30] MEDS ORDERED: POTASSIUM PHOSPHATE 22 MEQ in SODIUM CHL 0.9% 100 ML IV ONE (15:00)
[2023-04-30] MEDS: LATANOPROST 0.005 % OPTH(EYE) SOL 2.5ML EACHEYE SCH (17:39)
[2023-04-30] MEDS: ONDANSETRON HCL 4 MG/2 ML VIAL IV PRN (19:35)
[2023-04-30] MEDS ORDERED: TPN PER PHARMACY IV NR ×10 (20:00)
[2023-04-30] MEDS: ENOXAPARIN SOD 80 MG/0.8ML SYRINGE SC SCH (20:14)
[2023-05-01] VITALS (32 sets, daily range): BP systolic 106–183; BP diastolic 46–84; PULSE 63–104; RESP 15–24; TEMP 97.8–98.6; O2SAT 94–98
[2023-05-01] MEDS: InsuLIN REG 1unit/0.01ml Soln (100units/ml) SC SCH ×3 (06:00→18:00)
[2023-05-01] MEDS: ACCU-CHEK COMFORT CURVE STRIP VI SCH ×3 (06:00→18:00)
[2023-05-01] MEDS: ENOXAPARIN SOD 80 MG/0.8ML SYRINGE SC SCH ×2 (10:00→22:04)
[2023-05-01] MEDS: CLOTRIMAZOLE 1 % CREAM 15GM TOP SCH (10:00)
[2023-05-01] MEDS: SODIUM CHLOR 0.9% PF (SALINE LOCK) 10ML VIAL/SYR IV SCH ×2 (10:00→22:04)
[2023-05-01] MEDS: EYE EACHEYE SCH ×2 (10:00→22:00)
[2023-05-01] MEDS: DORZOLAMIDE TIMOLOL EACHEYE SCH ×2 (10:00→22:00)
[2023-05-01] MEDS: PANTOPRAZOLE 40 MG/10 ML VIAL INJ IV SCH (10:00)
[2023-05-01] MEDS: D5W/SOD CHL 0.45% 1,000 ML IV SCH ×2 (11:00→22:04)
[2023-05-01] MEDS: MIDAZOLAM DRIP 50 mg/50mL 50 ML IV SCH (11:45)
[2023-05-01] MEDS: fentaNYL Drip 2500mCg/250mlNS 250 ML IV SCH (11:45)
[2023-05-01 12:42] LABS: Albumin 2.3 g/dL (3.2-4.8); Alkaline Phosphatase 33 U/L (46-116); Anion Gap 7 (5-15); Aspartate Aminotransferase 13 U/L (13-40); BUN/Creatinine Ratio 16.4 (10.0-20.0); Bilirubin, Total 0.4 mg/dL (0.2-1.0); Blood Urea Nitrogen 18 mg/dL (9-23); Carbon Dioxide 26 mmol/L (20-30); Chloride 106 mmol/L (98-107); Magnesium 1.8 mg/dL (1.6-2.6); Phosphorus 2.4 mg/dL (2.4-5.1); Potassium 3.2 mmol/L (3.5-5.1); Sodium 139 mmol/L (136-145); Total Protein 4.4 g/dL (5.7-8.2)
[2023-05-01 12:51] LABS: Alanine Aminotransferase < 9 U/L (7-40); Glucose 177 mg/dL (74-106)
[2023-05-01] MEDS ORDERED: POTASSIUM PHOSPHATE 22 MEQ in SODIUM CHL 0.9% 100 ML IV ONE (13:15)
[2023-05-01] MEDS: metroNIDAZOLE 500MG/100ML 100 ML IV SCH ×3 (14:00→22:04)
[2023-05-01] MEDS: POTASSIUM CHL 20MEQ/100ML 100 ML IV SCH ×2 (15:21→17:15)
[2023-05-01] MEDS: CIPROFLOXACIN 400MG/200ML 200 ML IV SCH (15:22)
[2023-05-01] MEDS: LATANOPROST 0.005 % OPTH(EYE) SOL 2.5ML EACHEYE SCH (18:00)
[2023-05-01] MEDS: MORPHINE SULFATE INJ 2 MG/ml SYRG IV PRN (18:21)
[2023-05-01] MEDS ORDERED: TPN PER PHARMACY IV NR ×10 (20:00)
[2023-05-02] VITALS (45 sets, daily range): BP systolic 105–178; BP diastolic 48–79; PULSE 71–89; RESP 15–26; TEMP 98–98.9; O2SAT 93–100
[2023-05-02] MEDS: MORPHINE SULFATE INJ 2 MG/ml SYRG IV PRN ×4 (01:47→22:18)
[2023-05-02] MEDS: CIPROFLOXACIN 400MG/200ML 200 ML IV SCH (02:11)
[2023-05-02 05:24] LABS: Basophils # (auto) 0 10 ^3/uL (0-0.2); Basophils % (auto) 0.3 % (0.0-2.0); Eosinophils # (auto) 0.3 10 ^3/uL (0-0.8); Eosinophils % (auto) 1.9 % (0.0-7.0); Hematocrit 38.8 % (41.0-53.0); Hemoglobin 12.9 g/dL (13.5-17.5); Lymphocytes # (auto) 0.5 10 ^3/uL (0.4-5.4); Lymphocytes % (auto) 3.4 % (10.0-50.0); Mean Corpuscular Hemoglobin 30.3 pg (28.0-32.0); Mean Corpuscular Hgb Conc. 33.3 g/dL (32.0-36.0); Mean Corpuscular Volume 91.2 fL (80.0-100.0); Monocytes # (auto) 0.9 10 ^3/uL (0-1.3); Monocytes % (auto) 5.7 % (0.0-12.0); Neutrophils # (auto) 13.8 10 ^3/uL (1.6-8.6); Neutrophils % (auto) 88.7 % (37.0-80.0); Red Blood Cells 4.25 10^6/uL (4.5-5.90); Red Cell Distribution Width 14.8 % (11.8-14.3); White Blood Cell 15.5 10^3/uL (4.4-10.8)
[2023-05-02 05:25] LABS: Alkaline Phosphatase 37 U/L (46-116); Anion Gap 6 (5-15); BUN/Creatinine Ratio 18.2 (10.0-20.0); Blood Urea Nitrogen 18 mg/dL (9-23); Carbon Dioxide 23 mmol/L (20-30); Chloride 105 mmol/L (98-107); Glucose 216 mg/dL (74-106); Magnesium 1.7 mg/dL (1.6-2.6); Potassium 3.6 mmol/L (3.5-5.1)
[2023-05-02 05:26] LABS: Albumin 2.4 g/dL (3.2-4.8); Aspartate Aminotransferase 16 U/L (13-40); Bilirubin, Total 0.4 mg/dL (0.2-1.0); Phosphorus 2.2 mg/dL (2.4-5.1); Total Protein 4.6 g/dL (5.7-8.2)
[2023-05-02 05:47] LABS: Alanine Aminotransferase < 9 U/L (7-40); Sodium 134 mmol/L (136-145)
[2023-05-02] MEDS: metroNIDAZOLE 500MG/100ML 100 ML IV SCH (06:17)
[2023-05-02] MEDS: ACCU-CHEK COMFORT CURVE STRIP VI SCH ×4 (06:21→18:57)
[2023-05-02] MEDS: InsuLIN REG 1unit/0.01ml Soln (100units/ml) SC SCH ×4 (06:27→18:00)
[2023-05-02] MEDS: D5W/SOD CHL 0.45% 1,000 ML IV SCH ×2 (07:00→17:00)
[2023-05-02] MEDS ORDERED: VANCOMYCIN PER PHARMACY 0 MG IV SCH (09:15)
[2023-05-02] MEDS: CLOTRIMAZOLE 1 % CREAM 15GM TOP SCH (10:00)
[2023-05-02] MEDS ORDERED: SODIUM PHOSPHATES 20 MEQ in SODIUM CHL 0.9% 100 ML IV ONE (10:30)
[2023-05-02] MEDS: VANCOMYCIN 1GM/250ML 250 ML IV SCH (10:31)
[2023-05-02] MEDS: FLUCONAZOLE 200MG/100ML 100 ML IV SCH (10:31)
[2023-05-02] MEDS: ENOXAPARIN SOD 80 MG/0.8ML SYRINGE SC SCH ×2 (10:31→22:20)
[2023-05-02] MEDS: PANTOPRAZOLE 40 MG/10 ML VIAL INJ IV SCH (10:31)
[2023-05-02] MEDS: SODIUM CHLOR 0.9% PF (SALINE LOCK) 10ML VIAL/SYR IV SCH ×2 (10:33→22:37)
[2023-05-02] MEDS: DORZOLAMIDE TIMOLOL EACHEYE SCH ×2 (10:34→22:00)
[2023-05-02] MEDS: EYE EACHEYE SCH ×2 (10:34→22:00)
[2023-05-02] MEDS: MIDAZOLAM DRIP 50 mg/50mL 50 ML IV SCH (11:45)
[2023-05-02] MEDS: fentaNYL Drip 2500mCg/250mlNS 250 ML IV SCH (11:45)
[2023-05-02] MEDS: AZTREONAM 1GM INJ 1 GM in D5W 5% 50 ML IV SCH ×2 (12:14→18:43)
[2023-05-02] MEDS: IPRATROPIUM BROM 0.5 MG/2.5ML INH SOL NEB SCH ×2 (13:05→19:32)
[2023-05-02] MEDS: LATANOPROST 0.005 % OPTH(EYE) SOL 2.5ML EACHEYE SCH (18:00)
[2023-05-02] MEDS: NEOSTIGMINE 1 MG/ML INJ (10mg/10ML VIAL) SC SCH (18:43)
[2023-05-02] MEDS ORDERED: TPN PER PHARMACY IV NR ×11 (20:00)
[2023-05-03] VITALS (13 sets, daily range): BP systolic 101–157; BP diastolic 41–82; PULSE 66–82; RESP 16–96; TEMP 98–98.6; O2SAT 93–99
[2023-05-03] MEDS: NEOSTIGMINE 1 MG/ML INJ (10mg/10ML VIAL) SC SCH ×4 (00:43→17:50)
[2023-05-03] MEDS: ACCU-CHEK COMFORT CURVE STRIP VI SCH ×4 (00:46→17:50)
[2023-05-03] MEDS: InsuLIN REG 1unit/0.01ml Soln (100units/ml) SC SCH ×4 (00:50→18:37)
[2023-05-03] MEDS: MORPHINE SULFATE INJ 2 MG/ml SYRG IV PRN ×3 (02:29→14:28)
[2023-05-03] MEDS: D5W/SOD CHL 0.45% 1,000 ML IV SCH ×3 (02:31→23:00)
[2023-05-03] MEDS: AZTREONAM 1GM INJ 1 GM in D5W 5% 50 ML IV SCH ×3 (02:35→18:00)
[2023-05-03] MEDS: VANCOMYCIN 1GM/250ML 250 ML IV SCH ×2 (02:43→17:49)
[2023-05-03] MEDS: IPRATROPIUM BROM 0.5 MG/2.5ML INH SOL NEB SCH ×3 (07:07→18:48)
[2023-05-03 07:08] LABS: Albumin 2.5 g/dL (3.2-4.8); Alkaline Phosphatase 43 U/L (46-116); Anion Gap 5 (5-15); Aspartate Aminotransferase 18 U/L (13-40); BUN/Creatinine Ratio 21.3 (10.0-20.0); Bilirubin, Total 0.5 mg/dL (0.2-1.0); Blood Urea Nitrogen 20 mg/dL (9-23); Calcium 7.2 mg/dL (8.7-10.4); Carbon Dioxide 24 mmol/L (20-30); Chloride 106 mmol/L (98-107); Glucose 167 mg/dL (74-106); Magnesium 1.7 mg/dL (1.6-2.6); Phosphorus 2.5 mg/dL (2.4-5.1); Potassium 3.6 mmol/L (3.5-5.1); Sodium 135 mmol/L (136-145)
[2023-05-03 07:09] LABS: Total Protein 4.7 g/dL (5.7-8.2)
[2023-05-03 07:13] LABS: Alanine Aminotransferase < 9 U/L (7-40)
[2023-05-03] MEDS: FLUCONAZOLE 200MG/100ML 100 ML IV SCH (10:04)
[2023-05-03] MEDS: SODIUM CHLOR 0.9% PF (SALINE LOCK) 10ML VIAL/SYR IV SCH (10:05)
[2023-05-03] MEDS: PANTOPRAZOLE 40 MG/10 ML VIAL INJ IV SCH (10:05)
[2023-05-03] MEDS: ENOXAPARIN SOD 80 MG/0.8ML SYRINGE SC SCH ×2 (10:05→22:12)
[2023-05-03] MEDS: DORZOLAMIDE TIMOLOL EACHEYE SCH ×2 (10:25→22:14)
[2023-05-03] MEDS: EYE EACHEYE SCH ×2 (10:25→22:14)
[2023-05-03] MEDS: CLOTRIMAZOLE 1 % CREAM 15GM TOP SCH (11:46)
[2023-05-03] MEDS: LATANOPROST 0.005 % OPTH(EYE) SOL 2.5ML EACHEYE SCH (18:00)
[2023-05-03] MEDS: OPTH EACHEYE SCH (19:00)
[2023-05-03] MEDS: LUMIGAN 0.01% EACHEYE SCH (19:00)
[2023-05-03] MEDS: HYDROmorphone HCL 2 MG/ML VL/or syr IV PRN (19:48)
[2023-05-03] MEDS ORDERED: TPN PER PHARMACY IV NR ×10 (20:00)
[2023-05-04] VITALS (13 sets, daily range): BP systolic 141–153; BP diastolic 77–83; PULSE 69–95; RESP 16–99; TEMP 97.8–98.7; O2SAT 95–100
[2023-05-04] MEDS: InsuLIN REG 1unit/0.01ml Soln (100units/ml) SC SCH ×4 (02:05→17:24)
[2023-05-04] MEDS: AZTREONAM 1GM INJ 1 GM in D5W 5% 50 ML IV SCH ×3 (02:13→17:08)
[2023-05-04] MEDS: SODIUM CHLOR 0.9% PF (SALINE LOCK) 10ML VIAL/SYR IV SCH ×3 (02:13→22:00)
[2023-05-04 04:08] LABS: Basophils # (auto) 0 10 ^3/uL (0-0.2); Basophils % (auto) 0.2 % (0.0-2.0); Eosinophils # (auto) 0.6 10 ^3/uL (0-0.8); Eosinophils % (auto) 3.9 % (0.0-7.0); Hematocrit 38.4 % (41.0-53.0); Hemoglobin 12.8 g/dL (13.5-17.5); Lymphocytes # (auto) 0.7 10 ^3/uL (0.4-5.4); Lymphocytes % (auto) 5.1 % (10.0-50.0); Mean Corpuscular Hemoglobin 30.6 pg (28.0-32.0); Mean Corpuscular Hgb Conc. 33.3 g/dL (32.0-36.0); Mean Corpuscular Volume 91.9 fL (80.0-100.0); Monocytes # (auto) 1.2 10 ^3/uL (0-1.3); Monocytes % (auto) 8.6 % (0.0-12.0); Neutrophils # (auto) 11.6 10 ^3/uL (1.6-8.6); Neutrophils % (auto) 82.2 % (37.0-80.0); Red Blood Cells 4.17 10^6/uL (4.5-5.90); Red Cell Distribution Width 14.7 % (11.8-14.3); White Blood Cell 14.1 10^3/uL (4.4-10.8)
[2023-05-04 04:42] LABS: Albumin 2.5 g/dL (3.2-4.8); Alkaline Phosphatase 45 U/L (46-116); Anion Gap 4 (5-15); Aspartate Aminotransferase 19 U/L (13-40); BUN/Creatinine Ratio 21.3 (10.0-20.0); Bilirubin, Total 0.6 mg/dL (0.2-1.0); Blood Urea Nitrogen 20 mg/dL (9-23); Calcium 7.5 mg/dL (8.7-10.4); Carbon Dioxide 24 mmol/L (20-30); Chloride 107 mmol/L (98-107); Glucose 131 mg/dL (74-106); Magnesium 1.7 mg/dL (1.6-2.6); Phosphorus 2.6 mg/dL (2.4-5.1); Potassium 3.7 mmol/L (3.5-5.1); Sodium 135 mmol/L (136-145); Total Protein 4.7 g/dL (5.7-8.2)
[2023-05-04 04:43] LABS: Alanine Aminotransferase < 9 U/L (7-40)
[2023-05-04] MEDS: ACCU-CHEK COMFORT CURVE STRIP VI SCH ×4 (07:03→17:23)
[2023-05-04] MEDS: IPRATROPIUM BROM 0.5 MG/2.5ML INH SOL NEB SCH ×3 (07:28→18:12)
[2023-05-04] MEDS: D5W/SOD CHL 0.45% 1,000 ML IV SCH ×2 (09:00→19:13)
[2023-05-04] MEDS: VANCOMYCIN 1GM/250ML 250 ML IV SCH (10:50)
[2023-05-04] MEDS: PANTOPRAZOLE 40 MG/10 ML VIAL INJ IV SCH (10:50)
[2023-05-04] MEDS: FLUCONAZOLE 200MG/100ML 100 ML IV SCH (10:50)
[2023-05-04] MEDS: ENOXAPARIN SOD 80 MG/0.8ML SYRINGE SC SCH ×2 (10:51→22:39)
[2023-05-04] MEDS: CLOTRIMAZOLE 1 % CREAM 15GM TOP SCH (10:52)
[2023-05-04] MEDS: EYE EACHEYE SCH ×2 (10:53→22:00)
[2023-05-04] MEDS: DORZOLAMIDE TIMOLOL EACHEYE SCH ×2 (10:53→22:00)
[2023-05-04] MEDS: OPTH EACHEYE SCH (12:02)
[2023-05-04] MEDS: LUMIGAN 0.01% EACHEYE SCH (12:02)
[2023-05-04] MEDS: HYDROmorphone HCL 2 MG/ML VL/or syr IV PRN ×2 (17:22→23:05)
[2023-05-04] MEDS ORDERED: TPN PER PHARMACY IV NR ×11 (20:00)
[2023-05-05] VITALS (14 sets, daily range): BP systolic 136–169; BP diastolic 70–83; PULSE 71–85; RESP 16–20; TEMP 98.2–98.9; O2SAT 95–100
[2023-05-05] MEDS: ACCU-CHEK COMFORT CURVE STRIP VI SCH ×5 (00:30→23:28)
[2023-05-05] MEDS: VANCOMYCIN 1GM/250ML 250 ML IV SCH ×2 (00:51→13:23)
[2023-05-05] MEDS: InsuLIN REG 1unit/0.01ml Soln (100units/ml) SC SCH ×5 (00:52→23:34)
[2023-05-05] MEDS: AZTREONAM 1GM INJ 1 GM in D5W 5% 50 ML IV SCH ×3 (03:43→17:29)
[2023-05-05 06:06] LABS: Albumin 2.6 g/dL (3.2-4.8); Alkaline Phosphatase 64 U/L (46-116); Anion Gap 5 (5-15); Aspartate Aminotransferase 18 U/L (13-40); BUN/Creatinine Ratio 24.2 (10.0-20.0); Bilirubin, Total 0.7 mg/dL (0.2-1.0); Blood Urea Nitrogen 22 mg/dL (9-23); Calcium 7.7 mg/dL (8.7-10.4); Carbon Dioxide 25 mmol/L (20-30); Chloride 105 mmol/L (98-107); Glucose 174 mg/dL (74-106); Magnesium 1.7 mg/dL (1.6-2.6); Phosphorus 2.8 mg/dL (2.4-5.1); Potassium 3.5 mmol/L (3.5-5.1); Sodium 135 mmol/L (136-145)
[2023-05-05] MEDS: IPRATROPIUM BROM 0.5 MG/2.5ML INH SOL NEB SCH ×3 (06:08→18:44)
[2023-05-05 06:14] LABS: Alanine Aminotransferase < 9 U/L (7-40)
[2023-05-05] MEDS: ENOXAPARIN SOD 80 MG/0.8ML SYRINGE SC SCH ×2 (09:38→21:22)
[2023-05-05] MEDS: PANTOPRAZOLE 40 MG/10 ML VIAL INJ IV SCH (09:38)
[2023-05-05] MEDS: FLUCONAZOLE 200MG/100ML 100 ML IV SCH (09:39)
[2023-05-05] MEDS: D5W/SOD CHL 0.45% 1,000 ML IV SCH ×2 (09:40→21:24)
[2023-05-05] MEDS: CLOTRIMAZOLE 1 % CREAM 15GM TOP SCH (09:45)
[2023-05-05] MEDS: OPTH EACHEYE SCH (09:52)
[2023-05-05] MEDS: DORZOLAMIDE TIMOLOL EACHEYE SCH ×2 (09:52→21:25)
[2023-05-05] MEDS: LUMIGAN 0.01% EACHEYE SCH (09:52)
[2023-05-05] MEDS: EYE EACHEYE SCH ×2 (09:52→21:25)
[2023-05-05] MEDS: SODIUM CHLOR 0.9% PF (SALINE LOCK) 10ML VIAL/SYR IV SCH ×2 (09:53→21:22)
[2023-05-05] MEDS ORDERED: TPN PER PHARMACY IV NR ×11 (20:00)
[2023-05-06] VITALS (13 sets, daily range): BP systolic 129–141; BP diastolic 65–74; PULSE 74–84; RESP 15–19; TEMP 98.2–98.7; O2SAT 93–100
[2023-05-06] MEDS: AZTREONAM 1GM INJ 1 GM in D5W 5% 50 ML IV SCH ×3 (01:15→18:47)
[2023-05-06] MEDS: VANCOMYCIN 1GM/250ML 250 ML IV SCH ×2 (03:55→08:22)
[2023-05-06] MEDS: ACCU-CHEK COMFORT CURVE STRIP VI SCH ×3 (05:40→18:28)
[2023-05-06] MEDS: InsuLIN REG 1unit/0.01ml Soln (100units/ml) SC SCH ×3 (05:42→18:00)
[2023-05-06 06:57] LABS: Basophils # (auto) 0.1 10 ^3/uL (0-0.2); Basophils % (auto) 0.6 % (0.0-2.0); Eosinophils # (auto) 0.6 10 ^3/uL (0-0.8); Eosinophils % (auto) 6.1 % (0.0-7.0); Hematocrit 35.3 % (41.0-53.0); Hemoglobin 11.9 g/dL (13.5-17.5); Lymphocytes # (auto) 0.7 10 ^3/uL (0.4-5.4); Lymphocytes % (auto) 6.6 % (10.0-50.0); Mean Corpuscular Hemoglobin 30.4 pg (28.0-32.0); Mean Corpuscular Hgb Conc. 33.6 g/dL (32.0-36.0); Mean Corpuscular Volume 90.3 fL (80.0-100.0); Monocytes # (auto) 1.2 10 ^3/uL (0-1.3); Monocytes % (auto) 11.6 % (0.0-12.0); Neutrophils # (auto) 7.6 10 ^3/uL (1.6-8.6); Neutrophils % (auto) 75.1 % (37.0-80.0); Red Blood Cells 3.91 10^6/uL (4.5-5.90); Red Cell Distribution Width 14.7 % (11.8-14.3); White Blood Cell 10.1 10^3/uL (4.4-10.8)
[2023-05-06 06:59] LABS: Alanine Aminotransferase 10 U/L (7-40); Albumin 2.6 g/dL (3.2-4.8); Alkaline Phosphatase 82 U/L (46-116); Aspartate Aminotransferase 23 U/L (13-40); BUN/Creatinine Ratio 25.8 (10.0-20.0); Blood Urea Nitrogen 23 mg/dL (9-23); Calcium 7.7 mg/dL (8.5-10.1); Carbon Dioxide 25 mmol/L (20-30); Glucose 171 mg/dL (74-106); Phosphorus 2.8 mg/dL (2.4-5.1); Triglycerides 90 mg/dL (< 150)
[2023-05-06 07:00] LABS: Bilirubin, Total 0.8 mg/dL (0.2-1.0)
[2023-05-06] MEDS: IPRATROPIUM BROM 0.5 MG/2.5ML INH SOL NEB SCH ×3 (07:11→18:32)
[2023-05-06 07:32] LABS: Anion Gap 6 (5-15); Chloride 106 mmol/L (98-107); Potassium 3.6 mmol/L (3.5-5.1); Sodium 137 mmol/L (136-145)
[2023-05-06] MEDS: LUMIGAN 0.01% EACHEYE SCH (10:00)
[2023-05-06] MEDS: OPTH EACHEYE SCH (10:00)
[2023-05-06] MEDS: PANTOPRAZOLE 40 MG/10 ML VIAL INJ IV SCH (11:13)
[2023-05-06] MEDS: FLUCONAZOLE 200MG/100ML 100 ML IV SCH (11:14)
[2023-05-06] MEDS: SODIUM CHLOR 0.9% PF (SALINE LOCK) 10ML VIAL/SYR IV SCH ×2 (11:14→21:43)
[2023-05-06] MEDS: ENOXAPARIN SOD 80 MG/0.8ML SYRINGE SC SCH ×2 (11:14→21:43)
[2023-05-06] MEDS: D5W/SOD CHL 0.45% 1,000 ML IV SCH (11:38)
[2023-05-06] MEDS: EYE EACHEYE SCH ×2 (11:43→21:44)
[2023-05-06] MEDS: DORZOLAMIDE TIMOLOL EACHEYE SCH ×2 (11:43→21:44)
[2023-05-06 11:55] LABS: Magnesium 1.8 mg/dL (1.6-2.6)
[2023-05-06] MEDS ORDERED: VANCOMYCIN 1GM/250ML 250 ML IV SCH (18:00)
[2023-05-06] MEDS ORDERED: TPN PER PHARMACY IV NR ×11 (20:00)
[2023-05-07] VITALS (14 sets, daily range): BP systolic 124–161; BP diastolic 68–93; PULSE 74–96; RESP 16–19; TEMP 97.9–99.8; O2SAT 93–97
[2023-05-07] MEDS ORDERED: VANCOMYCIN 1GM/250ML 250 ML IV SCH
[2023-05-07] MEDS: ACCU-CHEK COMFORT CURVE STRIP VI SCH ×4 (00:15→18:21)
[2023-05-07] MEDS: InsuLIN REG 1unit/0.01ml Soln (100units/ml) SC SCH ×4 (00:25→18:20)
[2023-05-07] MEDS: D5W/SOD CHL 0.45% 1,000 ML IV SCH ×2 (00:27→13:25)
[2023-05-07] MEDS: AZTREONAM 1GM INJ 1 GM in D5W 5% 50 ML IV SCH ×3 (01:59→18:50)
[2023-05-07] MEDS: IPRATROPIUM BROM 0.5 MG/2.5ML INH SOL NEB SCH ×3 (05:45→19:08)
[2023-05-07 05:46] LABS: Alanine Aminotransferase 11 U/L (7-40); Albumin 2.7 g/dL (3.2-4.8); Alkaline Phosphatase 94 U/L (46-116); Anion Gap 6 (5-15); Aspartate Aminotransferase 22 U/L (13-40); BUN/Creatinine Ratio 26.4 (10.0-20.0); Blood Urea Nitrogen 24 mg/dL (9-23); Calcium 7.7 mg/dL (8.5-10.1); Carbon Dioxide 24 mmol/L (20-30); Chloride 106 mmol/L (98-107); Glucose 149 mg/dL (74-106); Phosphorus 3.1 mg/dL (2.4-5.1); Potassium 3.8 mmol/L (3.5-5.1); Sodium 136 mmol/L (136-145); Total Protein 5.4 g/dL (5.7-8.2)
[2023-05-07 06:51] LABS: Magnesium 1.9 mg/dL (1.6-2.6)
[2023-05-07] MEDS: FLUCONAZOLE 200MG/100ML 100 ML IV SCH (11:12)
[2023-05-07] MEDS: PANTOPRAZOLE 40 MG/10 ML VIAL INJ IV SCH (11:12)
[2023-05-07] MEDS: ENOXAPARIN SOD 80 MG/0.8ML SYRINGE SC SCH ×2 (11:13→21:50)
[2023-05-07] MEDS: DORZOLAMIDE TIMOLOL EACHEYE SCH ×2 (11:21→22:06)
[2023-05-07] MEDS: EYE EACHEYE SCH ×2 (11:21→22:06)
[2023-05-07] MEDS: OPTH EACHEYE SCH (11:22)
[2023-05-07] MEDS: SODIUM CHLOR 0.9% PF (SALINE LOCK) 10ML VIAL/SYR IV SCH ×2 (11:22→21:53)
[2023-05-07] MEDS: LUMIGAN 0.01% EACHEYE SCH (11:22)
[2023-05-07] MEDS ORDERED: FUROSEMIDE 100 MG/10ML VIAL IV ONE (14:45)
[2023-05-07] MEDS ORDERED: GASTROGRAFIN 30 ML SOL ONE (15:11)
[2023-05-07] MEDS ORDERED: POTASSIUM CHLORIDE 40 MEQ, LIDOCAINE 1% (LOCAL ANESTH.) 4 ML in SODIUM CHL 0.9% 250 ML IV ONE (17:15)
[2023-05-07] MEDS: HYDROmorphone HCL 2 MG/ML VL/or syr IV PRN (18:21)
[2023-05-07] MEDS ORDERED: ACETAMINOPHEN 650 MG RECT SUPP PR PRN (19:15)
[2023-05-07] MEDS ORDERED: TPN PER PHARMACY IV NR ×12 (20:00)
[2023-05-08] VITALS (14 sets, daily range): BP systolic 126–183; BP diastolic 76–90; PULSE 79–107; RESP 16–20; TEMP 97.9–98.6; O2SAT 93–99
[2023-05-08] MEDS: ACCU-CHEK COMFORT CURVE STRIP VI SCH ×5 (00:12→23:56)
[2023-05-08] MEDS: InsuLIN REG 1unit/0.01ml Soln (100units/ml) SC SCH ×5 (00:31→23:49)
[2023-05-08] MEDS: D5W/SOD CHL 0.45% 1,000 ML IV SCH ×3 (00:37→20:52)
[2023-05-08 05:52] LABS: Alanine Aminotransferase 10 U/L (7-40); Alkaline Phosphatase 134 U/L (46-116); Anion Gap 8 (5-15); Aspartate Aminotransferase 29 U/L (13-40); Blood Urea Nitrogen 26 mg/dL (9-23); Calcium 8.1 mg/dL (8.7-10.4); Carbon Dioxide 24 mmol/L (20-30); Chloride 103 mmol/L (98-107); Potassium 3.9 mmol/L (3.5-5.1); Sodium 135 mmol/L (136-145)
[2023-05-08 05:53] LABS: Phosphorus 3.6 mg/dL (2.4-5.1); Total Protein 6.1 g/dL (5.7-8.2)
[2023-05-08] MEDS: VANCOMYCIN 1GM/250ML 250 ML IV SCH (06:03)
[2023-05-08] MEDS: IPRATROPIUM BROM 0.5 MG/2.5ML INH SOL NEB SCH ×3 (06:54→18:52)
[2023-05-08 07:36] LABS: Glucose 177 mg/dL (74-106)
[2023-05-08] MEDS: AZTREONAM 1GM INJ 1 GM in D5W 5% 50 ML IV SCH ×3 (07:47→18:57)
[2023-05-08] MEDS: OPTH EACHEYE SCH (10:00)
[2023-05-08] MEDS: LUMIGAN 0.01% EACHEYE SCH (10:00)
[2023-05-08] MEDS: PANTOPRAZOLE 40 MG/10 ML VIAL INJ IV SCH (11:18)
[2023-05-08] MEDS: ENOXAPARIN SOD 80 MG/0.8ML SYRINGE SC SCH ×2 (11:18→20:43)
[2023-05-08] MEDS: SODIUM CHLOR 0.9% PF (SALINE LOCK) 10ML VIAL/SYR IV SCH ×2 (11:18→20:50)
[2023-05-08] MEDS: FLUCONAZOLE 200MG/100ML 100 ML IV SCH (11:19)
[2023-05-08] MEDS: DORZOLAMIDE TIMOLOL EACHEYE SCH ×2 (11:20→20:59)
[2023-05-08] MEDS: EYE EACHEYE SCH ×2 (11:20→20:59)
[2023-05-08] MEDS ORDERED: TPN PER PHARMACY IV NR ×12 (20:00)
[2023-05-09] VITALS (12 sets, daily range): BP systolic 124–140; BP diastolic 67–82; PULSE 75–94; RESP 16–18; TEMP 98.1–99.2; O2SAT 93–100
[2023-05-09] MEDS: AZTREONAM 1GM INJ 1 GM in D5W 5% 50 ML IV SCH ×3 (01:41→18:51)
[2023-05-09] MEDS: VANCOMYCIN 1GM/250ML 250 ML IV SCH (05:45)
[2023-05-09] MEDS: ACCU-CHEK COMFORT CURVE STRIP VI SCH ×3 (05:52→17:28)
[2023-05-09] MEDS: InsuLIN REG 1unit/0.01ml Soln (100units/ml) SC SCH ×3 (05:59→17:34)
[2023-05-09] MEDS: IPRATROPIUM BROM 0.5 MG/2.5ML INH SOL NEB SCH ×3 (06:28→20:07)
[2023-05-09 07:07] LABS: Alanine Aminotransferase 26 U/L (7-40); Alkaline Phosphatase 207 U/L (46-116); Anion Gap 6 (5-15); Aspartate Aminotransferase 48 U/L (13-40); BUN/Creatinine Ratio 33.3 (10.0-20.0); Bilirubin, Total 0.7 mg/dL (0.2-1.0); Blood Urea Nitrogen 35 mg/dL (9-23); Calcium 7.9 mg/dL (8.7-10.4); Carbon Dioxide 24 mmol/L (20-30); Chloride 105 mmol/L (98-107); Glucose 149 mg/dL (74-106); Magnesium 2.2 mg/dL (1.6-2.6); Phosphorus 3.7 mg/dL (2.4-5.1); Sodium 135 mmol/L (136-145); Total Protein 6.1 g/dL (5.7-8.2)
[2023-05-09] MEDS: SODIUM CHLOR 0.9% PF (SALINE LOCK) 10ML VIAL/SYR IV SCH ×2 (10:40→22:00)
[2023-05-09] MEDS: PANTOPRAZOLE 40 MG/10 ML VIAL INJ IV SCH (10:40)
[2023-05-09] MEDS: FLUCONAZOLE 200MG/100ML 100 ML IV SCH (10:40)
[2023-05-09] MEDS: OPTH EACHEYE SCH (10:42)
[2023-05-09] MEDS: EYE EACHEYE SCH ×2 (10:42→21:11)
[2023-05-09] MEDS: LUMIGAN 0.01% EACHEYE SCH (10:42)
[2023-05-09] MEDS: ENOXAPARIN SOD 80 MG/0.8ML SYRINGE SC SCH ×2 (10:42→21:07)
[2023-05-09] MEDS: DORZOLAMIDE TIMOLOL EACHEYE SCH ×2 (10:42→21:11)
[2023-05-09] MEDS ORDERED: FUROSEMIDE 100 MG/10ML VIAL IV ONE (15:45)
[2023-05-09] MEDS: POTASSIUM CHL 20MEQ/100ML 100 ML IV SCH ×2 (16:36→18:22)
[2023-05-09] MEDS: FUROSEMIDE 20 MG/2 ML VIAL IV SCH (18:22)
[2023-05-09] MEDS: D5W/SOD CHL 0.45% 1,000 ML IV SCH (18:45)
[2023-05-09] MEDS ORDERED: TPN PER PHARMACY IV NR ×13 (20:00)
[2023-05-10] VITALS (14 sets, daily range): BP systolic 121–141; BP diastolic 67–73; PULSE 80–96; RESP 16–20; TEMP 97.6–98.6; O2SAT 93–100
[2023-05-10] MEDS: InsuLIN REG 1unit/0.01ml Soln (100units/ml) SC SCH ×4 (00:21→18:00)
[2023-05-10] MEDS: ACCU-CHEK COMFORT CURVE STRIP VI SCH ×4 (00:22→18:00)
[2023-05-10] MEDS: AZTREONAM 1GM INJ 1 GM in D5W 5% 50 ML IV SCH ×3 (01:37→18:00)
[2023-05-10] MEDS: VANCOMYCIN 1GM/250ML 250 ML IV SCH (06:28)
[2023-05-10] MEDS: FUROSEMIDE 20 MG/2 ML VIAL IV SCH ×2 (06:29→18:00)
[2023-05-10] MEDS: IPRATROPIUM BROM 0.5 MG/2.5ML INH SOL NEB SCH ×3 (06:32→18:14)
[2023-05-10 07:00] LABS: Alanine Aminotransferase 34 U/L (7-40); Alkaline Phosphatase 198 U/L (46-116); Anion Gap 8 (5-15); Aspartate Aminotransferase 43 U/L (13-40); BUN/Creatinine Ratio 28.4 (10.0-20.0); Blood Urea Nitrogen 31 mg/dL (9-23); Carbon Dioxide 22 mmol/L (20-30); Chloride 106 mmol/L (98-107); Glucose 109 mg/dL (74-106); Potassium 4.3 mmol/L (3.5-5.1); Sodium 136 mmol/L (136-145)
[2023-05-10 07:01] LABS: Bilirubin, Total 0.8 mg/dL (0.2-1.0); Phosphorus 3.2 mg/dL (2.4-5.1); Total Protein 5.9 g/dL (5.7-8.2)
[2023-05-10 07:11] LABS: Magnesium 1.8 mg/dL (1.6-2.6)
[2023-05-10] MEDS: D5W/SOD CHL 0.45% 1,000 ML IV SCH ×2 (08:05→21:25)
[2023-05-10] MEDS: ENOXAPARIN SOD 80 MG/0.8ML SYRINGE SC SCH ×2 (10:26→21:26)
[2023-05-10] MEDS: SODIUM CHLOR 0.9% PF (SALINE LOCK) 10ML VIAL/SYR IV SCH ×2 (10:26→21:27)
[2023-05-10] MEDS: FLUCONAZOLE 200MG/100ML 100 ML IV SCH (10:26)
[2023-05-10] MEDS: EYE EACHEYE SCH ×2 (10:27→21:28)
[2023-05-10] MEDS: DORZOLAMIDE TIMOLOL EACHEYE SCH ×2 (10:27→21:28)
[2023-05-10] MEDS: PANTOPRAZOLE 40 MG/10 ML VIAL INJ IV SCH (10:27)
[2023-05-10] MEDS: LUMIGAN 0.01% EACHEYE SCH (10:27)
[2023-05-10] MEDS: OPTH EACHEYE SCH (10:27)
[2023-05-10] MEDS ORDERED: ACETAMINOPHEN 325 MG TAB PO PRN (11:15)
[2023-05-11] VITALS (15 sets, daily range): BP systolic 119–148; BP diastolic 71–85; PULSE 79–94; RESP 16–20; TEMP 97.8–98.4; O2SAT 96–100
[2023-05-11] MEDS: ACCU-CHEK COMFORT CURVE STRIP VI SCH ×2 (02:28→06:28)
[2023-05-11] MEDS: AZTREONAM 1GM INJ 1 GM in D5W 5% 50 ML IV SCH ×2 (02:29→09:41)
[2023-05-11] MEDS: D5W/SOD CHL 0.45% 1,000 ML IV SCH ×2 (04:52→23:02)
[2023-05-11] MEDS: VANCOMYCIN 1GM/250ML 250 ML IV SCH (06:26)
[2023-05-11] MEDS: FUROSEMIDE 20 MG/2 ML VIAL IV SCH ×2 (06:29→17:56)
[2023-05-11] MEDS: IPRATROPIUM BROM 0.5 MG/2.5ML INH SOL NEB SCH ×3 (06:46→19:26)
[2023-05-11] MEDS: InsuLIN REG 1unit/0.01ml Soln (100units/ml) SC SCH ×2 (06:49)
[2023-05-11] MEDS: SODIUM CHLOR 0.9% PF (SALINE LOCK) 10ML VIAL/SYR IV SCH ×2 (09:40→21:19)
[2023-05-11] MEDS: ENOXAPARIN SOD 80 MG/0.8ML SYRINGE SC SCH (09:40)
[2023-05-11] MEDS: DORZOLAMIDE TIMOLOL EACHEYE SCH ×2 (09:41→21:15)
[2023-05-11] MEDS: OPTH EACHEYE SCH (09:41)
[2023-05-11] MEDS: EYE EACHEYE SCH ×2 (09:41→21:15)
[2023-05-11] MEDS: LUMIGAN 0.01% EACHEYE SCH (09:41)
[2023-05-11] MEDS: PANTOPRAZOLE 40 MG/10 ML VIAL INJ IV SCH (09:41)
[2023-05-11] MEDS: FLUCONAZOLE 200MG/100ML 100 ML IV SCH (09:41)
[2023-05-11 12:31] LABS: Basophils # (auto) 0.1 10 ^3/uL (0-0.2); Basophils % (auto) 1.3 % (0.0-2.0); Eosinophils # (auto) 0.3 10 ^3/uL (0-0.8); Eosinophils % (auto) 4.5 % (0.0-7.0); Hematocrit 39.1 % (41.0-53.0); Hemoglobin 12.9 g/dL (13.5-17.5); Lymphocytes # (auto) 0.6 10 ^3/uL (0.4-5.4); Lymphocytes % (auto) 7.9 % (10.0-50.0); Mean Corpuscular Hemoglobin 30.9 pg (28.0-32.0); Mean Corpuscular Hgb Conc. 33.1 g/dL (32.0-36.0); Mean Corpuscular Volume 93.5 fL (80.0-100.0); Monocytes # (auto) 0.6 10 ^3/uL (0-1.3); Monocytes % (auto) 9.2 % (0.0-12.0); Neutrophils # (auto) 5.4 10 ^3/uL (1.6-8.6); Neutrophils % (auto) 77.1 % (37.0-80.0); Red Blood Cells 4.18 10^6/uL (4.5-5.90); Red Cell Distribution Width 15.5 % (11.8-14.3)
[2023-05-12] VITALS (15 sets, daily range): BP systolic 114–130; BP diastolic 57–78; PULSE 78–95; RESP 16–20; TEMP 97.4–98.2; O2SAT 95–100
[2023-05-12] MEDS: FUROSEMIDE 20 MG/2 ML VIAL IV SCH ×2 (05:37→19:17)
[2023-05-12] MEDS: IPRATROPIUM BROM 0.5 MG/2.5ML INH SOL NEB SCH ×4 (07:23→18:16)
[2023-05-12] MEDS: LUMIGAN 0.01% EACHEYE SCH ×2 (10:00→21:38)
[2023-05-12] MEDS: OPTH EACHEYE SCH ×2 (10:00→21:38)
[2023-05-12] MEDS: SODIUM CHLOR 0.9% PF (SALINE LOCK) 10ML VIAL/SYR IV SCH ×2 (10:00→21:26)
[2023-05-12] MEDS: DORZOLAMIDE TIMOLOL EACHEYE SCH ×2 (10:48→21:26)
[2023-05-12] MEDS: EYE EACHEYE SCH ×2 (10:48→21:26)
[2023-05-12] MEDS: D5W/SOD CHL 0.45% 1,000 ML IV SCH (18:14)
[2023-05-13] VITALS (13 sets, daily range): BP systolic 108–135; BP diastolic 65–75; PULSE 79–88; RESP 16–20; TEMP 97.9–98.5; O2SAT 95–100
[2023-05-13] MEDS: D5W/SOD CHL 0.45% 1,000 ML IV SCH ×3 (02:45→21:23)
[2023-05-13] MEDS: IPRATROPIUM BROM 0.5 MG/2.5ML INH SOL NEB SCH ×3 (06:59→18:21)
[2023-05-13] MEDS: FUROSEMIDE 20 MG/2 ML VIAL IV SCH (10:07)
[2023-05-13] MEDS: EYE EACHEYE SCH ×2 (10:08→21:38)
[2023-05-13] MEDS: DORZOLAMIDE TIMOLOL EACHEYE SCH ×2 (10:08→21:38)
[2023-05-13] MEDS: SODIUM CHLOR 0.9% PF (SALINE LOCK) 10ML VIAL/SYR IV SCH ×2 (10:13→21:27)
[2023-05-13] MEDS: METOCLOPRAMIDE HCL 5MG/ml INJ 2ml VIAL IV SCH (21:26)
[2023-05-13] MEDS: LUMIGAN 0.01% EACHEYE SCH (21:39)
[2023-05-13] MEDS: OPTH EACHEYE SCH (21:39)
[2023-05-13] MEDS ORDERED: MOTEGRITY PO SCH (22:00)
[2023-05-14] VITALS (15 sets, daily range): BP systolic 123–129; BP diastolic 66–81; PULSE 83–98; RESP 16–20; TEMP 97.1–98.6; O2SAT 94–100
[2023-05-14] MEDS: METOCLOPRAMIDE HCL 5MG/ml INJ 2ml VIAL IV SCH ×3 (06:40→21:55)
[2023-05-14] MEDS: IPRATROPIUM BROM 0.5 MG/2.5ML INH SOL NEB SCH ×3 (06:51→18:57)
[2023-05-14] MEDS: SODIUM CHLOR 0.9% PF (SALINE LOCK) 10ML VIAL/SYR IV SCH ×2 (11:09→21:42)
[2023-05-14] MEDS: FUROSEMIDE 20 MG/2 ML VIAL IV SCH (11:09)
[2023-05-14] MEDS: DORZOLAMIDE TIMOLOL EACHEYE SCH ×2 (11:09→21:46)
[2023-05-14] MEDS: EYE EACHEYE SCH ×2 (11:09→21:46)
[2023-05-14] MEDS: D5W/SOD CHL 0.45% 1,000 ML IV SCH ×2 (18:45→21:37)
[2023-05-14] MEDS: LUMIGAN 0.01% EACHEYE SCH (21:43)
[2023-05-14] MEDS: OPTH EACHEYE SCH (21:43)
[2023-05-15] VITALS (14 sets, daily range): BP systolic 113–135; BP diastolic 60–74; PULSE 82–99; RESP 18–20; TEMP 97.2–98.5; O2SAT 95–100
[2023-05-15] MEDS: METOCLOPRAMIDE HCL 5MG/ml INJ 2ml VIAL IV SCH ×3 (06:29→21:35)
[2023-05-15] MEDS: IPRATROPIUM BROM 0.5 MG/2.5ML INH SOL NEB SCH ×3 (07:29→18:56)
[2023-05-15] MEDS: FUROSEMIDE 20 MG/2 ML VIAL IV SCH (10:12)
[2023-05-15] MEDS: DORZOLAMIDE TIMOLOL EACHEYE SCH ×2 (10:12→21:26)
[2023-05-15] MEDS: EYE EACHEYE SCH ×2 (10:12→21:26)
[2023-05-15] MEDS: SODIUM CHLOR 0.9% PF (SALINE LOCK) 10ML VIAL/SYR IV SCH ×2 (10:12→21:41)
[2023-05-15] MEDS: OPTH EACHEYE SCH (21:44)
[2023-05-15] MEDS: LUMIGAN 0.01% EACHEYE SCH (21:44)
[2023-05-15] MEDS: D5W/SOD CHL 0.45% 1,000 ML IV SCH (21:44)
[2023-05-16] VITALS (14 sets, daily range): BP systolic 114–126; BP diastolic 59–78; PULSE 71–97; RESP 16–18; TEMP 97.7–98.6; O2SAT 95–100
[2023-05-16] MEDS: METOCLOPRAMIDE HCL 5MG/ml INJ 2ml VIAL IV SCH ×3 (05:39→21:07)
[2023-05-16] MEDS: IPRATROPIUM BROM 0.5 MG/2.5ML INH SOL NEB SCH ×3 (06:54→19:26)
[2023-05-16] MEDS: FUROSEMIDE 20 MG/2 ML VIAL IV SCH (10:16)
[2023-05-16] MEDS: SODIUM CHLOR 0.9% PF (SALINE LOCK) 10ML VIAL/SYR IV SCH ×2 (10:16→21:07)
[2023-05-16] MEDS: EYE EACHEYE SCH ×2 (10:16→21:28)
[2023-05-16] MEDS: DORZOLAMIDE TIMOLOL EACHEYE SCH ×2 (10:16→21:28)
[2023-05-16] MEDS: D5W/SOD CHL 0.45% 1,000 ML IV SCH ×2 (10:45→21:07)
[2023-05-16] MEDS: LUMIGAN 0.01% EACHEYE SCH (21:28)
[2023-05-16] MEDS: OPTH EACHEYE SCH (21:28)
[2023-05-17] VITALS (12 sets, daily range): BP systolic 125–134; BP diastolic 71–84; PULSE 70–91; RESP 14–20; TEMP 97.9–98.8; O2SAT 94–100
[2023-05-17] MEDS: METOCLOPRAMIDE HCL 5MG/ml INJ 2ml VIAL IV SCH ×3 (05:57→23:02)
[2023-05-17] MEDS: IPRATROPIUM BROM 0.5 MG/2.5ML INH SOL NEB SCH ×3 (07:12→18:24)
[2023-05-17] MEDS: FUROSEMIDE 20 MG/2 ML VIAL IV SCH (10:14)
[2023-05-17] MEDS: EYE EACHEYE SCH ×2 (10:15→22:00)
[2023-05-17] MEDS: DORZOLAMIDE TIMOLOL EACHEYE SCH ×2 (10:15→22:00)
[2023-05-17] MEDS: SODIUM CHLOR 0.9% PF (SALINE LOCK) 10ML VIAL/SYR IV SCH ×2 (10:15→23:02)
[2023-05-17] MEDS: D5W/SOD CHL 0.45% 1,000 ML IV SCH ×2 (13:26→23:18)
[2023-05-17] MEDS: LUMIGAN 0.01% EACHEYE SCH (22:00)
[2023-05-17] MEDS: OPTH EACHEYE SCH (22:00)
[2023-05-18] VITALS (13 sets, daily range): BP systolic 113–137; BP diastolic 55–87; PULSE 80–100; RESP 16–20; TEMP 97.5–98.7; O2SAT 95–99
[2023-05-18] MEDS: METOCLOPRAMIDE HCL 5MG/ml INJ 2ml VIAL IV SCH ×3 (06:06→21:47)
[2023-05-18] MEDS: IPRATROPIUM BROM 0.5 MG/2.5ML INH SOL NEB SCH ×3 (06:50→18:40)
[2023-05-18] MEDS: FUROSEMIDE 20 MG/2 ML VIAL IV SCH (09:43)
[2023-05-18] MEDS: SODIUM CHLOR 0.9% PF (SALINE LOCK) 10ML VIAL/SYR IV SCH ×2 (09:44→21:51)
[2023-05-18] MEDS: DORZOLAMIDE TIMOLOL EACHEYE SCH ×2 (09:45→21:51)
[2023-05-18] MEDS: EYE EACHEYE SCH ×2 (09:45→21:51)
[2023-05-18] MEDS: D5W/SOD CHL 0.45% 1,000 ML IV SCH (16:05)
[2023-05-18] MEDS: LUMIGAN 0.01% EACHEYE SCH (21:51)
[2023-05-18] MEDS: OPTH EACHEYE SCH (21:51)
[2023-05-19] VITALS (13 sets, daily range): BP systolic 104–141; BP diastolic 62–85; PULSE 65–95; RESP 14–19; TEMP 97.8–98.9; O2SAT 95–100
[2023-05-19] MEDS: D5W/SOD CHL 0.45% 1,000 ML IV SCH ×2 (05:19→18:21)
[2023-05-19] MEDS: METOCLOPRAMIDE HCL 5MG/ml INJ 2ml VIAL IV SCH ×3 (05:19→21:00)
[2023-05-19] MEDS: IPRATROPIUM BROM 0.5 MG/2.5ML INH SOL NEB SCH ×3 (06:21→18:31)
[2023-05-19] MEDS: FUROSEMIDE 20 MG/2 ML VIAL IV SCH (10:00)
[2023-05-19] MEDS: SODIUM CHLOR 0.9% PF (SALINE LOCK) 10ML VIAL/SYR IV SCH ×2 (10:00→21:08)
[2023-05-19] MEDS: DORZOLAMIDE TIMOLOL EACHEYE SCH ×2 (10:03→21:08)
[2023-05-19] MEDS: EYE EACHEYE SCH ×2 (10:03→21:08)
[2023-05-19 16:22] LABS: Basophils # (auto) 0 10 ^3/uL (0-0.2); Basophils % (auto) 0.5 % (0.0-2.0); Eosinophils # (auto) 0.2 10 ^3/uL (0-0.8); Hematocrit 38.5 % (41.0-53.0); Hemoglobin 12.8 g/dL (13.5-17.5); Lymphocytes # (auto) 0.8 10 ^3/uL (0.4-5.4); Mean Corpuscular Hemoglobin 30.1 pg (28.0-32.0); Mean Corpuscular Hgb Conc. 33.3 g/dL (32.0-36.0); Mean Corpuscular Volume 90.4 fL (80.0-100.0); Monocytes # (auto) 0.9 10 ^3/uL (0-1.3); Monocytes % (auto) 10.7 % (0.0-12.0); Neutrophils # (auto) 6.2 10 ^3/uL (1.6-8.6); Neutrophils % (auto) 76.8 % (37.0-80.0); Red Blood Cells 4.26 10^6/uL (4.5-5.90); Red Cell Distribution Width 14.8 % (11.8-14.3)
[2023-05-19 16:45] LABS: Alanine Aminotransferase 13 U/L (7-40); Albumin 3.3 g/dL (3.2-4.8); Alkaline Phosphatase 115 U/L (46-116); Anion Gap 8 (5-15); Aspartate Aminotransferase 21 U/L (13-40); BUN/Creatinine Ratio 10.5 (10.0-20.0); Blood Urea Nitrogen 12 mg/dL (9-23); Calcium 8.2 mg/dL (8.7-10.4); Carbon Dioxide 24 mmol/L (20-30); Chloride 106 mmol/L (98-107); Glucose 133 mg/dL (74-106); Sodium 138 mmol/L (136-145)
[2023-05-19 16:46] LABS: Bilirubin, Total 0.6 mg/dL (0.2-1.0); Total Protein 6.7 g/dL (5.7-8.2)
[2023-05-19 16:48] LABS: Potassium 2.7 mmol/L (3.5-5.1)
[2023-05-19] MEDS: POTASSIUM CHL 20MEQ/100ML 100 ML IV SCH ×3 (18:22→23:45)
[2023-05-19] MEDS: OPTH EACHEYE SCH (21:08)
[2023-05-19] MEDS: LUMIGAN 0.01% EACHEYE SCH (21:08)
[2023-05-20] VITALS (18 sets, daily range): BP systolic 122–137; BP diastolic 60–84; PULSE 78–95; RESP 12–20; TEMP 97.5–99; O2SAT 9–100
[2023-05-20] MEDS: METOCLOPRAMIDE HCL 5MG/ml INJ 2ml VIAL IV SCH ×3 (06:25→22:05)
[2023-05-20] MEDS: IPRATROPIUM BROM 0.5 MG/2.5ML INH SOL NEB SCH ×3 (06:58→19:21)
[2023-05-20] MEDS: FUROSEMIDE 20 MG/2 ML VIAL IV SCH (09:31)
[2023-05-20] MEDS: EYE EACHEYE SCH ×2 (09:33→22:06)
[2023-05-20] MEDS: DORZOLAMIDE TIMOLOL EACHEYE SCH ×2 (09:33→22:06)
[2023-05-20] MEDS: SODIUM CHLOR 0.9% PF (SALINE LOCK) 10ML VIAL/SYR IV SCH ×2 (09:37→22:05)
[2023-05-20] MEDS: D5W/SOD CHL 0.45% 1,000 ML IV SCH (22:02)
[2023-05-20] MEDS: OPTH EACHEYE SCH (22:06)
[2023-05-20] MEDS: LUMIGAN 0.01% EACHEYE SCH (22:06)
[2023-05-21] VITALS (11 sets, daily range): BP systolic 109–144; BP diastolic 67–85; PULSE 81–93; RESP 16–20; TEMP 97.9–98.8; O2SAT 94–100
[2023-05-21] MEDS: METOCLOPRAMIDE HCL 5MG/ml INJ 2ml VIAL IV SCH ×3 (06:24→21:40)
[2023-05-21] MEDS: IPRATROPIUM BROM 0.5 MG/2.5ML INH SOL NEB SCH ×3 (07:26→18:40)
[2023-05-21] MEDS: FUROSEMIDE 20 MG/2 ML VIAL IV SCH (09:34)
[2023-05-21] MEDS: SODIUM CHLOR 0.9% PF (SALINE LOCK) 10ML VIAL/SYR IV SCH ×2 (09:35→21:40)
[2023-05-21] MEDS: DORZOLAMIDE TIMOLOL EACHEYE SCH ×2 (09:37→21:40)
[2023-05-21] MEDS: EYE EACHEYE SCH ×2 (09:37→21:40)
[2023-05-21] MEDS: D5W/SOD CHL 0.45% 1,000 ML IV SCH (12:30)
[2023-05-21] MEDS: LUMIGAN 0.01% EACHEYE SCH (21:40)
[2023-05-21] MEDS: OPTH EACHEYE SCH (21:40)
[2023-05-22] VITALS (9 sets, daily range): BP systolic 132–140; BP diastolic 74–81; PULSE 74–93; RESP 16–20; TEMP 36.7; O2SAT 94–100
[2023-05-22] MEDS: D5W/SOD CHL 0.45% 1,000 ML IV SCH ×2 (00:34→13:49)
[2023-05-22] MEDS: METOCLOPRAMIDE HCL 5MG/ml INJ 2ml VIAL IV SCH ×2 (05:58→13:49)
[2023-05-22] MEDS: IPRATROPIUM BROM 0.5 MG/2.5ML INH SOL NEB SCH ×2 (06:58→12:36)
[2023-05-22] MEDS: SODIUM CHLOR 0.9% PF (SALINE LOCK) 10ML VIAL/SYR IV SCH (09:17)
[2023-05-22] MEDS: FUROSEMIDE 20 MG/2 ML VIAL IV SCH (09:17)
[2023-05-22] MEDS: DORZOLAMIDE TIMOLOL EACHEYE SCH (09:18)
[2023-05-22] MEDS: EYE EACHEYE SCH (09:18)
== END 2023-05-22 16:35 | disposition home or self-care (01) | DRG 853 ==
LOC: ER 07:23 → TELE 09:02 → TELE-WESTW 18:07 → ICU WEST 04-29 13:12 → TELE-EAST 05-02 16:30
PROVIDERS: ADMIT Internal Medicine; ATTEND Internal Medicine Cardiovascular Disease
PROC: 0D9670Z Drainage of Stomach with Drainage Device, Via Natural or Artificial Opening (ICD-10-PCS; 2023-04-24)
PROC: 0DB80ZZ Excision of Small Intestine, Open Approach (ICD-10-PCS; 2023-04-29)
PROC: 02HV33Z Insertion of Infusion Device into Superior Vena Cava, Percutaneous Approach (ICD-10-PCS; 2023-04-29)
PROC: B548ZZA Ultrasonography of Superior Vena Cava, Guidance (ICD-10-PCS; 2023-04-29)
PROC: 5A1935Z Respiratory Ventilation, Less than 24 Consecutive Hours (ICD-10-PCS; 2023-04-29)
PROC: 0BH17EZ Insertion of Endotracheal Airway into Trachea, Via Natural or Artificial Opening (ICD-10-PCS; 2023-04-29)
PROC: 0DN80ZZ Release Small Intestine, Open Approach (ICD-10-PCS; principal; 2023-04-29 08:49)
PROC: 5A1935Z Respiratory Ventilation, Less than 24 Consecutive Hours (ICD-10-PCS; 2023-04-30)
PROC: 5A1935Z Respiratory Ventilation, Less than 24 Consecutive Hours (ICD-10-PCS; 2023-05-01)
PROC: 5A1935Z Respiratory Ventilation, Less than 24 Consecutive Hours (ICD-10-PCS; 2023-05-02)
DX: A41.9 Sepsis, unspecified organism (principal); J96.00 Acute respiratory failure, unspecified whether with hypoxia or hypercapnia; N17.0 Acute kidney failure with tubular necrosis; N18.4 Chronic kidney disease, stage 4 (severe); I13.0 Hypertensive heart and chronic kidney disease with heart failure and stage 1 through stage 4 chronic kidney disease, or unspecified chronic kidney disease; A09 Infectious gastroenteritis and colitis, unspecified; R18.8 Other ascites; I50.22 Chronic systolic (congestive) heart failure; N25.81 Secondary hyperparathyroidism of renal origin; K56.51 Intestinal adhesions [bands], with partial obstruction; E11.22 Type 2 diabetes mellitus with diabetic chronic kidney disease; R33.9 Retention of urine, unspecified; K59.00 Constipation, unspecified; E78.5 Hyperlipidemia, unspecified; I25.5 Ischemic cardiomyopathy; E87.6 Hypokalemia; I25.10 Atherosclerotic heart disease of native coronary artery without angina pectoris; Z88.1 Allergy status to other antibiotic agents; Z88.0 Allergy status to penicillin; Z86.711 Personal history of pulmonary embolism; Z98.61 Coronary angioplasty status; Z95.1 Presence of aortocoronary bypass graft; Z95.0 Presence of cardiac pacemaker; Z83.3 Family history of diabetes mellitus; Z82.49 Family history of ischemic heart disease and other diseases of the circulatory system; Z82.3 Family history of stroke
CPT/HCPCS: 36415; 36569; 36600; 71045; 73620; 74018; 74176; 74250; 76705; 76775; 80048; 80053; 80202; 81001; 82248; 82306; 82570; 82805; 82962; 83036; 83605; 83690; 83735; 83930; 83970; 84100; 84156; 84300; 84478; 84484; 85007; 85025; 85027; 85610; 85730; 86704; 86706; 86708; 86803; 86850; 86900; 86901; 87040; 87070; 87081; 87205; 87340; 93005; 93970; 93971; 94002; 94003; 94640; 96365; 96366; 97110; 97116; 97163; 97530; 99291; C9113; G0378; J1450; J1815; J1956; J2001; J2250; J2405; J3480; J3490; J7042; J7060

== ENCOUNTER → 2023-05-26 | Outpatient (CLI) | payer MEDICARE, OTHER ==
[~2023-05-26] MED LIST changes: -LATA0.0020 EACHEYE; +MULTIPLE VIT 10 ML IV ONE; +MVI in SODIUM CHLORIDE 0.9% 500 ML IVB ONE
[2023-05-26 12:07] VITALS: BP 118/68; PULSE 62; RESP 16; O2SAT 97
[2023-05-26 15:15] VITALS: BP 107/60; PULSE 77; RESP 16; O2SAT 97
== END | disposition home or self-care (01) ==
LOC: CHF HDHVI 12:16
PROVIDERS: ATTEND Internal Medicine Cardiovascular Disease
DX: E86.0 Dehydration (principal); I25.10 Atherosclerotic heart disease of native coronary artery without angina pectoris; E78.5 Hyperlipidemia, unspecified; I13.0 Hypertensive heart and chronic kidney disease with heart failure and stage 1 through stage 4 chronic kidney disease, or unspecified chronic kidney disease; E11.22 Type 2 diabetes mellitus with diabetic chronic kidney disease; N18.4 Chronic kidney disease, stage 4 (severe); I50.22 Chronic systolic (congestive) heart failure; Z88.0 Allergy status to penicillin; Z88.1 Allergy status to other antibiotic agents; Z86.711 Personal history of pulmonary embolism; Z95.0 Presence of cardiac pacemaker
CPT/HCPCS: 96365; 96366; G0463; J7040; 96360; 96361

== ENCOUNTER → 2023-06-16 | Outpatient (CLI) | payer MEDICARE, OTHER ==
[~2023-06-16] MED LIST changes: -MULTIPLE VIT 10 ML IV ONE; -MVI in SODIUM CHLORIDE 0.9% 500 ML IVB ONE
== END | disposition home or self-care (01) ==
LOC: Rad HDHVI 09:00
PROVIDERS: ATTEND Internal Medicine Cardiovascular Disease
DX: I07.1 Rheumatic tricuspid insufficiency (principal); I11.9 Hypertensive heart disease without heart failure; R06.02 Shortness of breath
CPT/HCPCS: 93306

== ENCOUNTER → 2024-03-08 | Outpatient (CLI) | payer MEDICARE, OTHER ==
[~2024-03-08] MED LIST changes: -TAMS0.4C36 PO; +TAMS0.4C39 PO
== END | disposition home or self-care (01) ==
LOC: Rad HDHVI 11:03
PROVIDERS: ATTEND Internal Medicine Cardiovascular Disease
DX: J90 Pleural effusion, not elsewhere classified (principal); R06.02 Shortness of breath
CPT/HCPCS: 71046

== ENCOUNTER → 2024-03-09 | Outpatient (CLI) | payer MEDICARE, OTHER ==
[~2024-03-09] VITALS: Ht 182.9 cm; Wt 78.0 kg
[~2024-03-09] MED LIST changes: +ADENOSINE 66 MG in GIVE UN-DILUTED 0 ML IV ONE; +ADENOSINE 90 MG/30 ML INJ IV ONE
== END | disposition home or self-care (01) ==
LOC: Rad HDHVI 13:19
PROVIDERS: ATTEND Internal Medicine Cardiovascular Disease
DX: I25.10 Atherosclerotic heart disease of native coronary artery without angina pectoris (principal); E78.00 Pure hypercholesterolemia, unspecified; I25.2 Old myocardial infarction; I42.9 Cardiomyopathy, unspecified; I11.0 Hypertensive heart disease with heart failure; I50.9 Heart failure, unspecified; E11.9 Type 2 diabetes mellitus without complications; Z95.0 Presence of cardiac pacemaker
CPT/HCPCS: 78452; 93005; 96374; 96375; A9500; J0153

== ENCOUNTER → 2024-03-16 | Outpatient (CLI) | payer MEDICARE, OTHER ==
[~2024-03-16] MED LIST changes: -ADENOSINE 66 MG in GIVE UN-DILUTED 0 ML IV ONE; -ADENOSINE 90 MG/30 ML INJ IV ONE
== END | disposition home or self-care (01) ==
LOC: Rad HDHVI 10:42
PROVIDERS: ATTEND Internal Medicine Cardiovascular Disease
DX: I08.3 Combined rheumatic disorders of mitral, aortic and tricuspid valves (principal); I11.0 Hypertensive heart disease with heart failure; I50.23 Acute on chronic systolic (congestive) heart failure
CPT/HCPCS: 93306

== ENCOUNTER → 2024-05-14 | Outpatient (CLI) | payer MEDICARE, OTHER | END | disposition home or self-care (01) | LOC: Rad HDHVI 10:02 | PROVIDERS: ATTEND Internal Medicine Cardiovascular Disease | DX: J40 Bronchitis, not specified as acute or chronic (principal); J98.4 Other disorders of lung | CPT/HCPCS: 71046 ==

== ENCOUNTER 2025-02-02 11:39 | Outpatient (CLI) | payer MEDICARE, OTHER ==
[2025-02-02 11:45] VITALS: BP 83/49; PULSE 73; RESP 20; O2SAT 90
[2025-02-02] MEDS ORDERED: IOHEXOL 350 MG/ML 100ML IJ ONE (11:52)
[2025-02-02] MEDS ORDERED: READI-CAT 2 (BARIUM SULF)(VANILLA SMOOTHIE) 450ML ONE (11:52)
[2025-02-02] MEDS: TESTOSTERONE CYPIONATE 200 MG/ML 1ML VIAL IM ONE ×2 (12:00→15:02)
[2025-02-02] MEDS: MULTIPLE VIT 10 ML IV ONE (12:00)
[2025-02-02] MEDS: MVI in SODIUM CHLORIDE 0.9% 1,000 ML IVB ONE (12:00)
[2025-02-02 15:04] VITALS: BP 99/52; PULSE 63; RESP 16; O2SAT 95
--- NOTE | 2025-02-03 05:27 | DVH ---
Exam: CT CT CHST AB PLV W CON-ORAL IV History: WEIGHT LOSS Comparison Study: CHEST WITH CONTRAST on DOS: 12/20/20, CHEST WITH CONTRAST on DOS: 07/24/20, CHEST WITH CONTRAST on DOS: 06/19/20 Technique: Multidetector spiral CT of the chest, abdomen and pelvis was performed from lower neck to pubic symphysis. Intravenous contrast was administered during this examination. Portal venous imagin g was obtained. Axial, coronal and sagittal multiplanar reformats were performed by the technologist on a separate workstation. Radiation Dose : 1. Chest/Abdomen/Pelvis: CTDIvol 7.11 mGy, DLP 627.7 mGy*cm. Findings: Lower neck: Normal thyroid. Lungs: Moderate centrilobular emphysema. Linear scarring or atelectasis in the lingula. 0.8 cm spicul ated nodule in the right upper lobe, image 35. Lungs are hyperinflated suggestive of COPD. Heart/Vascular Structures: Left chest wall pacemaker. Cardiomegaly. Coronary artery calcifications. V ascular calcifications of the aorta. Lymph Nodes: No adenopathy Pleura: No pleural effusion or significant pneumothorax. Liver: Hepatic steatosis. Hepatomegaly. Gallbladder and Biliary Tree: Unremarkable Spleen: Unremarkable Pancreas: The pancreas is normal in appearance without focal lesions or abnormal enhancement. Adrenal Glands: Unremarkable Kidneys: Kidneys demonstrate normal symmetric enhancement without focal lesions, calculi or hydroneph rosis. Bladder: Unremarkable Bowel: The stomach is grossly normal in appearance. Moderate volume diffuse colonic stool. The append ix is not visualized; however, no secondary findings of acute appendicitis identified. Ascites: Absent Lymphadenopathy: No mesenteric, retroperitoneal or periportal lymphadenopathy. Abdominal Wall and Mesentery: Unremarkable. Vasculature: The visualized abdominal aorta is normal in size and caliber. There is calcified atheros clerotic plaque involving the aorta and its branches. Abdominal and pelvic vessels demonstrate normal enhancement. Pelvic Organs: Unremarkable Musculoskeletal: No aggressive focal bony lesions, acute fractures or dislocation. Degenerative zhou es of the spine and hips. IMPRESSION: Lungs are hyperinflated suggestive of COPD. Moderate centrilobular emphysema. Spiculated nodule or scarring in the right upper lobe measures 0.8 cm. Moderate volume colonic stool. Fleischner Society pulmonary nodule recommendations (2017): Single solid nodule <6 mm Low-risk patients: no routine follow-up required High-risk patients: optional CT at 12 months (particularly with suspicious nodule morphology and/or upper lobe location) Solitary solid nodule 6-8 mm Low-risk patients: CT at 6-12 months, then consider CT at 18-24 months High-risk patients: CT at 6-12 months, then CT at 18-24 months Solitary solid nodule >8 mm (>250 mm3) Low-risk and high-risk patients: consider CT at 3 months, PET/CT, or tissue sampling Multiple solid nodules <6 mm Low-risk patients: no routine follow-up required High-risk patients: optional CT at 12 months Multiple solid nodules >6 mm Low-risk patients: CT at 3-6 months, then consider CT at 18-24 months High-risk patients: CT at 3-6 months, then CT at 18-24 months When multiple nodules are present, the most suspicious nodule should guide further individualized management. Solitary groundglass opacities < 6 mm require no follow-up Multiple groundglass opacities < 6 mm: CT 3-6 months. If stable consider CT at 2 , and 4 years Groundglass opacities >6 mm: follow-up in 6-12 months and then every 2 years for 5 years. Groundglass opacities greater than 6 mm with part solid component follow-up CT in 3-6 months to confirm persistence. If unchanged and solid component remains less than [address] for 5 years Multiple groundglass opacities greater than 6 mm: CT at 3-6 months. Subsequent management based on the most suspicious nodules. These recommendations do not necessarily apply to women, patients with immunosuppression or a prior history of cancer, patients with multiple nodules that are suspicious for metastasis or infection, or patients with mediastinal lymphadenopathy or pleural effusion in whom cancer is strongly suspected.
== END 2025-02-02 17:00 | disposition home or self-care (01) ==
LOC: Rad HDHVI 11:39
PROVIDERS: ATTEND Internal Medicine Cardiovascular Disease
DX: E86.0 Dehydration (principal); E29.1 Testicular hypofunction; R64 Cachexia; I11.0 Hypertensive heart disease with heart failure; I50.23 Acute on chronic systolic (congestive) heart failure; I25.10 Atherosclerotic heart disease of native coronary artery without angina pectoris; I25.2 Old myocardial infarction; J43.2 Centrilobular emphysema; D84.9 Immunodeficiency, unspecified; E11.9 Type 2 diabetes mellitus without complications; E78.00 Pure hypercholesterolemia, unspecified; Z95.0 Presence of cardiac pacemaker
CPT/HCPCS: 71260; 74177; 96365; 96366; 96372; G0463; J1071; J7030; Q9967; 96360; 96361